=== PATIENT | male | born 1955 | race Caucasian/White ===

== ENCOUNTER → 2018-12-11 | Outpatient (CLI) | payer MEDICARE, OTHER ==
[~2018-12-11] MED LIST: CITA10TA GT; DOXY100C42 PO; EZET1TAB43 PO; HUMALOG; HYDR1TAB66 PO; IOHEXOL 350 MG/ML 100 ML (OMNIPAQUE 350) VIAL IV ONE; LEVE1U SQ; LEVEMIR; LSNP10T PO; LSNP20T PO; METF-380 PO; MTF500T PO; NS 100 ML (IVPB) BAG IV ONE; RECEIVED CONTRAST (Hold Metformin) IV SCH; SULF-222 PO; [UNRECOGNIZED DRUG - OTHER]
[2018-12-11 13:49] LABS: BUN/CREATININE RATIO 13; CREATININE SERUM 0.85 MG/DL (0.60-1.30); GFR ESTIMATED > 60
--- NOTE | 2018-12-11 16:22 | Diagnostic Imaging Report ---
PROCEDURE: CT chest with contrast, CT abdomen and pelvis with and without contrast. TECHNIQUE: Pre and post intravenous contrast axial imaging of the abdomen and pelvis and post contrast axial imaging of the chest were performed. INDICATION: Back pain, hematuria. COMPARISON: There are no prior CT chest, abdomen, and pelvis exams available for comparison. FINDINGS: On the pre intravenous contrast series through the abdomen, there is no evidence for nephrolithiasis or urolithiasis and the kidneys do not seem to be obstructed. Following administration of intravenous contrast, there was excretion by both kidneys. There is no evidence for a solid renal mass or for hydronephrosis. There is a 1.1 cm fairly well-circumscribed area of low density along the anterior aspect of the left kidney (image 43/99). Most likely, this is a cyst. The urinary bladder is not well distended and consequently difficult to assess. The thickened appearance of the bladder wall may be secondary to incomplete distention as oppose to cystitis. Clinical followup is recommended. The prostate gland is calcified but not enlarged. The appendix was visualized and is not abnormally thickened. There is diverticulosis of the sigmoid and descending colon but there is no evidence for acute diverticulitis. There is a fair amount of fecal material throughout the colon. The liver is homogeneous and not enlarged. The spleen, pancreas, adrenals, gallbladder, aorta, and inferior vena cava are unremarkable for an acute abnormality. The stomach is not well distended and consequently difficult to assess. The images through the thorax show that the heart size is within normal limits. There are coronary artery calcifications involving the LAD. The aorta is not abnormally dilated and there is no sign of dissection. The pulmonary arteries were not well opacified and consequently difficult to evaluate for pulmonary embolus. There is no definite defect to suggest a pulmonary embolus. There is no mediastinal or hilar adenopathy. There is a small 4 mm area of low density in the left lobe of the thyroid. This is most likely a benign process. If further imaging is desired, then ultrasound would be recommended. The lungs are clear. There is no sign of failure, pneumonia, or pleural effusion to indicate an acute abnormality. There is an 8 mm calcification in the right lung base. This is of uncertain etiology but may be a sequela of prior trauma and/or infection. Reportedly, the patient has pain in the region of the left scapula. A marker was placed over the area of concern. There is no mass identified in this area nor is there any evidence for a bony injury to the scapula. The bone windows do show severe degenerative disc and bony disease at L5-S1. There may also be trefoil stenosis at L3-L4 and L4-L5. If further study is desired, then MRI would be recommended. IMPRESSION: 1. There is no acute abnormality of the chest, abdomen, or pelvis. 2. There is no evidence for nephrolithiasis or urolithiasis and the kidneys do not appear to be obstructed. 3. There is no abnormality of the left scapula to account for the patient's pain. 4. The thickened appearance of the bladder wall may be secondary to incomplete distention as oppose to cystitis. Clinical followup is recommended. 5. The heart is not enlarged but there are coronary artery calcifications involving the LAD. 6. The small area of low density within the left lobe of the thyroid is most likely a benign process. If further evaluation is desired, then ultrasound would be recommended. Dictated by: Dictated on workstation # [id number]
== END ==
LOC: RAD 13:20
PROVIDERS: ATTEND Urology
DX: I25.10 Atherosclerotic heart disease of native coronary artery without angina pectoris (principal); E07.89 Other specified disorders of thyroid; R31.9 Hematuria, unspecified
CPT/HCPCS: 36415; 71260; 74178; 82565; 84520

== ENCOUNTER → 2019-01-13 | Outpatient (CLI) | payer MEDICARE ==
[~2019-01-13] MED LIST changes: -IOHEXOL 350 MG/ML 100 ML (OMNIPAQUE 350) VIAL IV ONE; -NS 100 ML (IVPB) BAG IV ONE; -RECEIVED CONTRAST (Hold Metformin) IV SCH
--- NOTE | 2019-01-13 18:45 | Diagnostic Imaging Report ---
INDICATION: Thyroid nodule. TECHNIQUE: Grayscale sonographic images of the thyroid gland. CORRELATION STUDY: None FINDINGS: RIGHT LOBE: 4.2 x 2.4 x 2.0 cm. There are several hypoechoic nodules within the right lobe. Largest at 8 x 7 x 3 mm. Additional one at 5 x 4 x 3 mm. LEFT LOBE: 2.9 x 1.7 x 1.5 cm. Hypoechoic nodule in the left lobe measures 6 x 5 x 5 mm. Isthmus appears unremarkable. IMPRESSION: Small hypoechoic nodules within both lobes. Given the multiplicity, findings overall favor likely benign process. Definitive concerning dominant mass is not suggested at this time. (Normal gland size: 4-5 x 2 x 2 cm) Dictated by: Dictated on workstation # [id number]
== END ==
LOC: RAD 11:39
PROVIDERS: ATTEND Nurse Practitioner Family
DX: E04.2 Nontoxic multinodular goiter (principal)
CPT/HCPCS: 76536

== ENCOUNTER → 2019-02-04 | Outpatient (CLI) | payer MEDICARE ==
--- NOTE | 2019-02-04 15:25 | Diagnostic Imaging Report ---
PROCEDURE: MR imaging cervical spine without contrast. TECHNIQUE: Multiplanar, multisequence MR imaging of the cervical spine was performed without contrast. INDICATION: Neck pain. FINDINGS: There is mild straightening of the normal cervical lordosis. The vertebral body heights are well-maintained. There are no marrow signal intensity abnormalities. The prevertebral soft tissues are within normal limits. The posterior fossa is unremarkable. The visualized portions of the spinal cord are of normal signal intensity and morphology. 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 C2-C3 is unremarkable. At C3-C4, there is some broad-based annular bulging and bilateral uncovertebral joint hypertrophy, right greater than left. There is moderate spinal stenosis. There is moderate right and mild left neural foraminal encroachment. At C4-C5, there is broad-based annular bulging and right uncovertebral joint hypertrophy. There is moderate spinal stenosis and [id number]-[id number]-[id number] right neural foraminal encroachment. At C5-C6, there is minimal annular bulging and small central disc protrusion. At C6-C7, there is broad-based annular bulging and bilateral uncovertebral joint hypertrophy. There is effacement of ventral thecal sac and [id number]-[id number]-[id number] bilateral neural foraminal encroachment, left greater than right. C7-T1 is unremarkable. IMPRESSION: Moderate cervical spondylosis and degenerative disc disease as detailed above. Dictated by: Dictated on workstation # [id number]
== END ==
LOC: RAD 12:54
PROVIDERS: ATTEND Orthopaedic Surgery
DX: M47.812 Spondylosis without myelopathy or radiculopathy, cervical region (principal); M50.30 Other cervical disc degeneration, unspecified cervical region; M50.21 Other cervical disc displacement, high cervical region; M48.02 Spinal stenosis, cervical region
CPT/HCPCS: 72141

== ENCOUNTER 2019-02-12 16:45 | Emergency (ER) | payer MEDICARE ==
[~2019-02-12] VITALS: Ht 177.8 cm; Wt 99.8 kg
--- OUTSIDE RECORDS SUMMARY | 2019-02-12 16:50 | XMS REPORT | Continuity of Care Document ---
Author Organization Unknown Address Unknown Allergies Active Description Code Type Severity Reaction Onset Reported/Identified Relationship to Patient Clinical Status Yes CODEINE SULFATE UNKNOWN UNKNOWN Yes NAPROSYN UNKNOWN UNKNOWN Yes codeine [id number] Drug Allergy Mild N/A 10/15/2014 Yes naproxen sodium [id number] Drug Allergy Unknown N/A 10/15/2014 Medications There is no data. 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 10/15/2014 WIL GRAVES MD Ot 959.01 HEAD INJURY, NOS 10/15/2014 WIL GRAVES MD Ot E000.8 OTHER EXTERNAL CAUSE STATUS 10/15/2014 WIL GRAVES MD Ot E849.0 ACCIDENT IN HOME 10/15/2014 WIL GRAVES MD Ot E885.9 FALL FROM SLIPPING, TRIPPING, OR STUMBLI 10/15/2014 WIL GRAVES MD Ot V06.1 [id number], COMBINED [ 01/10/2015 Ot 715.31 01/10/2015 Ot 723.1 01/10/2015 ANA LUISA CARUSO MANAGER WAREHOUSE Ot 486 01/10/2015 Ot 715.31 01/10/2015 Ot 723.1 01/10/2015 ANA LUISA CARUSO MANAGER WAREHOUSE Ot 486 12/12/2018 GOPI MAJANO MD Ot E07.89 OTHER SPECIFIED DISORDERS OF THYROID 12/12/2018 GOPI MAJANO MD Ot I25.10 ATHSCL HEART DISEASE OF [place] CORONARY 12/12/2018 GOPI MAJANO MD Ot R31.9 HEMATURIA, UNSPECIFIED 01/05/2019 GOPI MAJANO MD Ot E07.89 OTHER SPECIFIED DISORDERS OF THYROID 01/05/2019 GOPI MAJANO MD Ot I25.10 ATHSCL HEART DISEASE OF [place] CORONARY 01/05/2019 GOPI MAJANO MD Ot R31.9 HEMATURIA, UNSPECIFIED 01/13/2019 GOPI MAJANO MD Ot E07.89 OTHER SPECIFIED DISORDERS OF THYROID 01/13/2019 GOPI MAJANO MD Ot I25.10 ATHSCL HEART DISEASE OF [place] CORONARY 01/13/2019 GOPI MAJANO MD Ot R31.9 HEMATURIA, UNSPECIFIED 01/13/2019 GOPI MAJANO MD Ot E07.89 OTHER SPECIFIED DISORDERS OF THYROID 01/13/2019 GOPI MAJANO MD Ot I25.10 ATHSCL HEART DISEASE OF [place] CORONARY 01/13/2019 GOPI MAJANO MD Ot R31.9 HEMATURIA, UNSPECIFIED 01/14/2019 EVERETT BUTT BOILER REPAIRMAN Ot E04.2 NONTOXIC MULTINODULAR GOITER 01/18/2019 GOPI MAJANO MD Ot E07.89 OTHER SPECIFIED DISORDERS OF THYROID 01/18/2019 GOPI MAJANO MD Ot I25.10 ATHSCL HEART DISEASE OF [place] CORONARY 01/18/2019 GOPI MAJANO MD Ot R31.9 HEMATURIA, UNSPECIFIED 01/18/2019 EVERETT BUTT BOILER REPAIRMAN Ot E04.2 NONTOXIC MULTINODULAR GOITER 01/19/2019 EVERETT BUTT BOILER REPAIRMAN Ot E04.2 NONTOXIC MULTINODULAR GOITER 02/03/2019 GOPI MAJANO MD Ot E07.89 OTHER SPECIFIED DISORDERS OF THYROID 02/03/2019 GOPI MAJANO MD Ot I25.10 ATHSCL HEART DISEASE OF [place] CORONARY 02/03/2019 GOPI MAJANO MD Ot R31.9 HEMATURIA, UNSPECIFIED 02/03/2019 EVERETT BUTT APRN Ot E04.2 NONTOXIC MULTINODULAR GOITER Procedures There is no data. Results Test Result Range Mycoplasma - 09/13/16 13:50 Mycoplasma Negative Negative Comprehensive Metabolic Panel - 06/11/17 15:05 Albumin 4.1 g/dL 3.6-5.1 ALP 86 U/L 35-130 ALT 19 U/L 6-45 Anion Gap 13 6-14 AST 14 U/L 2-40 BUN 14 mg/dL 5-25 Calcium 9.8 mg/dL 8.3-10.4 Chloride 100 mmol/L 95-114 CO2 25 mEq/L 22-33 Creat 0.76 mg/dL 0.50-1.50 eGFR 104 mL/min/1.73m2 >59 Globulin 2.4 g/dL 2.3-3.5 Glucose 265 mg/dL 70-110 Osmo 284 280-295 Potassium 4.9 mmol/L 3.5-5.3 Sodium 133 mmol/L 134-148 TBil 0.5 mg/dL 0.2-1.2 TP 6.5 g/dL 6.0-8.3 Lipid Panel - 06/11/17 15:05 C/HDL 3.1 3.7-6.7 Cholesterol 147 mg/dL 100-240 HDL 47 mg/dL 30-85 LDL-Calculated 82 mg/dL 0-100 Trig 88 mg/dL 35-160 VLDL 18 mg/dL 0-42 [id number] - 12/11/18 13:30 Serum or plasma urea nitrogen measurement (mass/volume) 11 mg/dL 7-18 Serum or plasma creatinine measurement (mass/volume) 0.85 mg/dL 0.60-1.30 Serum or plasma urea nitrogen/creatinine mass ratio 13 NRG Serum or plasma creatinine measurement with calculation of estimated glomerular filtration rate > NRG Encounters ACCT No. Visit Date/Time Discharge Status Pt. Type Provider Facility Loc./Unit Complaint [id number] 02/04/2019 12:54:00 02/04/2019 23:59:59 CLS Outpatient CHRISTA ESPINO DO [facility] RAD NECK PAIN [id number] 01/13/2019 11:39:00 01/13/2019 23:59:59 CLS Outpatient EVERETT BUTT APRN Via [facility] RAD NONTOXIC SINGLE THYROID NODULE [id number] 12/11/2018 13:20:00 12/11/2018 23:59:59 CLS Outpatient OGPI MAJANO MD [facility] RAD BACK PAIN, HEMATURIA [id number] 10/15/2014 05:35:00 10/15/2014 08:53:00 DIS Emergency WIL GRAVES MD Via [facility] ER FALL-HEAD INJURY [id number] 04/15/2013 15:55:00 04/15/2013 23:59:59 CLS Outpatient ANA LUISA CARUSO [facility] RAD [id number] 03/24/2013 22:11:00 03/28/2013 14:40:00 DIS Inpatient ELLEN KEE, MARLA R Via [facility] 4TH [id number] 11/21/2012 15:53:00 Document Registration [id number] 10/15/2014 05:35:58 ACT Document Registration [id number] 06/12/2017 10:20:00 06/12/2017 23:59:00 DIS Outpatient Jayne Caruso [id number] 01/30/2017 07:43:00 01/30/2017 23:59:00 DIS Outpatient Tigre Mckenna [id number] 09/13/2016 14:38:00 09/13/2016 23:59:00 DIS Outpatient Tigre Mckenna
[2019-02-12] MEDS ORDERED: morphine INJ 10 MG/ML 1ML (SYR OR VIAL) IM STA (17:32)
--- NOTE | 2019-02-12 17:54 | ED Back Pain ---
General Chief Complaint: Back Problems Stated Complaint: BACK PAIN Nursing Triage Note: Pt reports back pain x1 month, worse today. Pt has back surgery scheduled on 03/[address] Campbell. Nursing Sepsis Screen: No Definite Risk Source of Information: Patient Exam Limitations: No Limitations History of Present Illness Date Seen by Provider: February 12, 2019 Time Seen by Provider: 17:32 Allergies and Home Medications Allergies Coded Allergies: codeine (Verified Allergy, Mild, 10/15/14) naproxen sodium (Verified Allergy, Unknown, 10/15/14) Home Medications Citalopram Hydrobromide 10 Mg Tablet, 10 MG GT DAILY, (Reported) Hydrocodone Bit/Acetaminophen 1 Each Tablet, 5-500 MG PO BID PRN, (Reported) PRN MODERATE PAIN Insulin Determir 100 U/Ml Insuln.pen, 50 UNITS SQ HS, (Reported) Lisinopril 20 Mg Tab, 20 MG PO DAILY, (Reported) Metformin Hcl 1,000 Mg Tablet, 1 EACH PO BID WITH MEALS, (Reported) Trimethoprim/Sulfamethoxazole 1 Ea Tablet, 1 TAB PO BID, (Reported) Past Sizohva-Qhuqnr-Tuyces Hx Patient Social History Alcohol Use: Denies Use Recreational Drug Use: No Smoking Status: Never a Smoker Recent Foreign Travel: No Contact w/Someone Who Travel: No Recent Infectious Disease Expo: No Recent Hopitalizations: No Immunizations Up To Date Tetanus Booster (TDap): Unknown Date of Pneumonia Vaccine: Jul 14, 2011 Seasonal Allergies Seasonal Allergies: No Past Medical History Surgeries: Yes Tonsillectomy Respiratory: No Cardiac: Yes Hypertension Neurological: No Reproductive Disorders: No Genitourinary: No Gastrointestinal: No Musculoskeletal: Yes Degenerate Disk Disease, Arthritis, Chronic Back Pain Endocrine: Yes Diabetes, Insulin dep Cancer: No Psychosocial: No Integumentary: No Physical Exam Vital Signs Vital Signs - First Documented 02/12/19 17:23 Temp 98.8 Pulse 93 Resp 18 B/P (MAP) 197/88 (124) Pulse Ox 98 O2 Delivery Room Air Capillary Refill : Less Than 3 Seconds Height, Weight, BMI Height: 5'10.00" Weight: 220lbs. oz. 99.516018we; BMI Method:Stated Progress/Results/Core Measures Results/Orders My Orders Orders - CHERIE BUSH Morphine Injection (Morphine Injection (02/12/19 17:32) Vital Signs/I&O 02/12/19 17:23 Temp 98.8 Pulse 93 Resp 18 B/P (MAP) 197/88 (124) Pulse Ox 98 O2 Delivery Room Air Blood Pressure Mean: 124 Progress Progress Note : Time: 18:07 Progress Note Patient has had improvement of pain. He agrees with plan of care, plans for discharge, return precautions were given. Departure Impression Primary Impression: Chronic back pain Disposition: 01 HOME, SELF-CARE Condition: Stable/Unchanged Departure-Patient Inst. Decision time for Depature: 18:06 Referrals: MARILIN ACPELLAN MD (PCP/Family) Primary Care Physician Patient Instructions: Chronic Pain Add. Discharge Instructions: Resume your home medications as previously prescribed. Follow-up with her primary care provider within 1 week for recheck. Return back to the emergency room for worsening symptoms or concerns as needed. All discharge instructions reviewed with patient and/or family. Voiced understanding. CHERIE BUSH February 12, 2019 17:54
[2019-02-12 18:33] VITALS: BP 197/88
== END 2019-02-12 18:38 | disposition home or self-care (01) ==
LOC: EDUNIT# 16:45 → ER 16:46
DX: M54.9 Dorsalgia, unspecified (principal); G89.29 Other chronic pain; I10 Essential (primary) hypertension; E11.9 Type 2 diabetes mellitus without complications; Z88.5 Allergy status to narcotic agent; Z88.8 Allergy status to other drugs, medicaments and biological substances; Z79.4 Long term (current) use of insulin; Z90.89 Acquired absence of other organs
CPT/HCPCS: 99284

== ENCOUNTER 2019-02-17 22:37 | Emergency (ER) | payer MEDICARE ==
[~2019-02-17] VITALS: Ht 177.8 cm; Wt 99.8 kg
--- OUTSIDE RECORDS SUMMARY | 2019-02-17 22:42 | XMS REPORT | Continuity of Care Document ---
Author Organization Unknown Address Unknown Allergies Active Description Code Type Severity Reaction Onset Reported/Identified Relationship to Patient Clinical Status Yes CODEINE SULFATE UNKNOWN UNKNOWN Yes NAPROSYN UNKNOWN UNKNOWN Yes codeine [id number] Drug Allergy Mild N/A 10/15/2014 Yes naproxen sodium [id number] Drug Allergy Unknown N/A 10/15/2014 Medications There [...] 10/15/2014 Ot 723.1 10/15/2014 ANA LUISA CARUSO PUBLIC WORKS LABORER Ot 486 10/15/2014 Ot 715.31 10/15/2014 Ot 723.1 10/15/2014 ANA LUISA CARUSO PUBLIC WORKS LABORER Ot 486 10/15/2014 WIL GRAVES MD Ot [...] STUMBLI 10/15/2014 WIL GRAVES MD Ot V06.1 [id number], COMBINED [ 01/10/2015 Ot 715.31 01/10/2015 Ot 723.1 01/10/2015 ANA LUISA CARUSO PUBLIC WORKS LABORER Ot 486 01/10/2015 Ot 715.31 01/10/2015 Ot 723.1 01/10/2015 ANA LUISA CARUSO PUBLIC WORKS LABORER Ot 486 12/12/2018 GOPI MAJANO MD Ot E07.89 OTHER SPECIFIED DISORDERS OF THYROID 12/12/2018 GOPI MAJANO MD Ot I25.10 ATHSCL HEART DISEASE OF [place] CORONARY 12/12/2018 GOPI MAJANO MD Ot R31.9 HEMATURIA, UNSPECIFIED 01/05/2019 GOPI MAJANO MD Ot E07.89 OTHER SPECIFIED DISORDERS OF THYROID 01/05/2019 GOPI MAJANO MD Ot I25.10 ATHSCL HEART DISEASE OF [place] CORONARY 01/05/2019 GOPI MAJANO MD Ot R31.9 HEMATURIA, UNSPECIFIED 01/13/2019 GOPI MAJANO MD Ot E07.89 OTHER SPECIFIED DISORDERS OF THYROID 01/13/2019 GOPI MAJANO MD Ot I25.10 ATHSCL HEART DISEASE OF [place] CORONARY 01/13/2019 GOPI MAJANO MD Ot R31.9 HEMATURIA, UNSPECIFIED 01/13/2019 GOPI MAJANO MD Ot E07.89 OTHER SPECIFIED DISORDERS OF THYROID 01/13/2019 GOPI MAJANO MD Ot I25.10 ATHSCL HEART DISEASE OF [place] CORONARY 01/13/2019 GOPI MAJANO MD Ot R31.9 HEMATURIA, UNSPECIFIED 01/14/2019 EVERETT BUTT CHIEF WARDEN Ot E04.2 NONTOXIC MULTINODULAR GOITER 01/18/2019 GOPI MAJANO MD Ot E07.89 OTHER SPECIFIED DISORDERS OF THYROID 01/18/2019 GOPI MAJANO MD Ot I25.10 ATHSCL HEART DISEASE OF [place] CORONARY 01/18/2019 GOPI MAJANO MD Ot R31.9 HEMATURIA, UNSPECIFIED 01/18/2019 EVERETT BUTT CHIEF WARDEN Ot E04.2 NONTOXIC MULTINODULAR GOITER 01/19/2019 EVERETT BUTT CHIEF WARDEN Ot E04.2 NONTOXIC MULTINODULAR GOITER 02/03/2019 GOPI MAJANO MD Ot E07.89 OTHER SPECIFIED DISORDERS OF THYROID 02/03/2019 GOPI MAJANO MD Ot I25.10 ATHSCL HEART DISEASE OF [place] CORONARY 02/03/2019 GOPI MAJANO MD Ot R31.9 [...] 88 mg/dL 35-160 VLDL 18 mg/dL 0-42 [id number] - 12/11/18 13:30 Serum or plasma urea nitrogen measurement (mass/volume) 11 mg/dL 7-18 Serum or plasma creatinine measurement (mass/volume) 0.85 mg/dL 0.60-1.30 Serum or plasma urea nitrogen/creatinine mass ratio 13 NRG Serum or plasma creatinine measurement with calculation of estimated glomerular filtration rate > NRG Encounters ACCT No. Visit Date/Time Discharge Status Pt. Type Provider Facility Loc./Unit Complaint [id number] 02/04/2019 12:54:00 02/04/2019 23:59:59 CLS Outpatient CHRISTA ESPINO DO [facility] RAD NECK PAIN [id number] 01/13/2019 11:39:00 01/13/2019 23:59:59 CLS Outpatient EVERETT BUTT APRN [facility] RAD NONTOXIC SINGLE THYROID NODULE [id number] 12/11/2018 13:20:00 12/11/2018 23:59:59 CLS Outpatient GOPI MAJANO MD [facility] RAD BACK PAIN, HEMATURIA [id number] 10/15/2014 05:35:00 10/15/2014 08:53:00 DIS Emergency WIL GRAVES MD [facility] ER FALL-HEAD INJURY [id number] 04/15/2013 15:55:00 04/15/2013 23:59:59 CLS Outpatient ANA LUISA CARUSO [facility] RAD [id number] 03/24/2013 22:11:00 03/28/2013 14:40:00 DIS Inpatient ELLEN KEE, MARLA R [facility] 4TH [id number] 11/21/2012 15:53:00 Document Registration [id number] 10/15/2014 05:35:58 ACT Document Registration [id number] 06/12/2017 10:20:00 06/12/2017 23:59:00 DIS Outpatient Jayne Caruso [id number] 01/30/2017 07:43:00 01/30/2017 23:59:00 DIS Outpatient Tigre Mckenna [id number] 09/13/2016 14:38:00 09/13/2016 23:59:00 DIS Outpatient Tigre Mkcenna
[2019-02-17] MEDS ORDERED: fentaNYL INJECTION 100 MCG/2 ML AMP IM STA (22:58)
[2019-02-17] MEDS ORDERED: DIAZEPAM 5 MG (VALIUM) TABLET PO ONE (23:00)
--- NOTE | 2019-02-17 23:23 | ED Back Pain ---
General Chief Complaint: Back Problems Stated Complaint: BACK PAIN Nursing Triage Note: TO ED VIA [facility]. PT HAS CHRONIC BACK PAIN, SCHEDULED TO HAVE BACK SX February. STATES HE HAS TO SLEEP, EAT, ETC SITTING UP IN CHAIR. STATES [place] HE WAS COUGHING AND TRIED TO SIT UP AND HEARD A "POP" BETWEEN SHOULDER BLADES AND FELT C/O "SEVERE PAIN THAT IS DIFFERENT THAN NORMAL". TOOK XANAFLEX AT 2150 WITH MILD RELIEF. STATES HE ALSO TAKES MOTRIN FOR PAIN AND HYDROCODONE BUT "IT DOESN'T HELP". LAST HYDRO WAS THIS AM. DENIES BOWEL OR BLADDER CHANGES. DENIES DEPRESSION. Nursing Sepsis Screen: No Definite Risk History of Present Illness Date Seen by Provider: February 17, 2019 Time Seen by Provider: 22:40 Initial Comments 63-year-old male brought via EMS for chronic mid back pain. He was seen here on 02/12/19 for similar complaints. He is scheduled for surgery with Dr. Espino on 03/02/19. He states that he choked this afternoon and then began coughing and felt and heard a pop in his mid back. Since then he's been unable to control his pain. The patient denies taking hydrocodone today and only took Zanaflex approximately 30 minutes prior to arrival here. However his reports that he is taking hydrocodone, however she does not know how frequently. They have requested to move his surgery to an earlier date, but unable to reschedule. They have not followed up with Dr. Espino or Dr. Alejandro for management of his increased pain. Patient reports for the last 5 days, he has been unable to lie flat. He is wearing a back brace for his thoracic spine. He denies new injuries or falls. He feels minimal relief with ice on his back. He had temporary relief after the Morphine injection at the previous visit. He denies radicular or paraesthesia symptoms. He has chronic cervical and lumbar pain, as well, and will have cervical surgery after this thoracic is recovered. Son called prior to patient arriving, concerned that patient is becoming depressed from chronic pain and that patient said "he can't live with the pain. " Talked to patient, he admits to being stressed by the constant pain, but he is not suicidal or homicidal. Location: Paraspinous Muscles, T-Spine Timing/Duration: Getting Worse Severity: Severe Associated Symptoms: muscle spasms, weakness, tingling in legs/feet, lower back pain; No loss of bladder control, No loss of bowel control Allergies and Home Medications Allergies Coded Allergies: codeine (Verified Allergy, Mild, 10/15/14) naproxen sodium (Verified Allergy, Unknown, 10/15/14) Home Medications Citalopram Hydrobromide 10 Mg Tablet, 10 MG GT DAILY, (Reported) Diazepam 10 Mg Tablet, 10 MG PO Q6H PRN for SPASMS Prescribed by: SALENA RAJAN on 02/17/19 9994 Hydrocodone Bit/Acetaminophen 1 Each Tablet, 5-500 MG PO BID PRN, (Reported) PRN MODERATE PAIN Insulin Determir 100 U/Ml Insuln.pen, 50 UNITS SQ HS, (Reported) Lisinopril 20 Mg Tab, 20 MG PO DAILY, (Reported) Metformin Hcl 1,000 Mg Tablet, 1 EACH PO BID WITH MEALS, (Reported) Trimethoprim/Sulfamethoxazole 1 Ea Tablet, 1 TAB PO BID, (Reported) Patient Home Medication List Home Medication List Reviewed: Yes Review of Systems Constitutional: no symptoms reported, see HPI Musculoskeletal: see HPI, back pain (thoracic spine), muscle pain, muscle stiffness, muscle cramps, muscle weakness All Other Systems Reviewed Negative Unless Noted: Yes Past Pcozvve-Pknyqe-Dhkuxt Hx Past Med/Social Hx: Reviewed Nursing Past Med/Soc Hx Patient Social History Alcohol Use: Denies Use Recreational Drug Use: No Smoking Status: Former Smoker Recent Foreign Travel: No Contact w/Someone Who Travel: No Recent Infectious Disease Expo: No Recent Hopitalizations: No Immunizations Up To Date Tetanus Booster (TDap): Unknown Date of Pneumonia Vaccine: Jul 14, 2011 Seasonal Allergies Seasonal Allergies: No Past Medical History Surgeries: Yes Tonsillectomy Respiratory: No Cardiac: Yes Hypertension Neurological: No Reproductive Disorders: No Genitourinary: No Gastrointestinal: No Musculoskeletal: Yes Degenerate Disk Disease, Arthritis, Chronic Back Pain Endocrine: Yes Diabetes, Non-Insulin dep Cancer: No Psychosocial: No Integumentary: No Physical Exam Vital Signs Vital Signs - First Documented 02/17/19 02/17/19 22:39 23:54 Temp 97.8 Pulse 91 Resp 20 B/P (MAP) 197/97 (130) Pulse Ox 98 Capillary Refill : Less Than 3 Seconds Height, Weight, BMI Height: 5'10.00" Weight: 220lbs. 0.0oz. 99.463830df; 30.68 BMI Method:Stated General Appearance: No Apparent Distress, Mild Distress (secondary to pain) HEENT: Normal ENT Inspection, Pharynx Normal Neck: Normal Inspection, Non Tender, Supple Cardiovascular: Regular Rate, Rhythm, No Edema, Normal Peripheral Pulses Respiratory: Chest Non Tender, Lungs Clear, Normal Breath Sounds Gastrointestinal: Normal Bowel Sounds, Non Tender, Soft Back: Normal Inspection, Decreased Range of Motion (secondary to pain), Muscle Spasm, Vertebral Tenderness (thoracic and lumbar spine), Other (Power V/V L4-S1 and C5-T1. ) Extremity: Normal Capillary Refill, Normal Inspection, Normal Range of Motion, Non Tender, No Pedal Edema Neurologic/Psychiatric: Alert, Oriented x3, No Motor/Sensory Deficits, Normal Mood/Affect Skin: Normal Color, Warm/Dry Progress/Results/Core Measures Results/Orders Lab Results Laboratory Tests Test 02/17/19 22:51 Range/Units Glucometer 267 H 70-110 MG/DL My Orders Orders - SALENA RAJAN Thoracic Spine, 2 Views Only (02/17/19 22:57) Fentanyl Injection (Sublimaze Injection (02/17/19 22:58) Diazepam Tablet (Valium Tablet) (02/17/19 23:00) Rx-Diazepam Tablet (Rx-Valium Tablet) (02/17/19 23:48) Medications Given in ED Current Medications Medications Dose Ordered Sig/Ladarius Route Start Time Stop Time Status Last Admin Dose Admin Diazepam 5 mg ONCE ONCE PO 02/17/19 23:00 02/17/19 23:01 DC 02/17/19 23:06 5 MG Vital Signs/I&O 02/17/19 02/17/19 22:39 23:54 Temp 97.8 97.8 Pulse 91 89 Resp 20 18 B/P (MAP) 197/97 (130) 165/85 (111) Pulse Ox 98 Blood Pressure Mean: 130 Progress Progress Note : Time: 22:40 Progress Note Patient seen and evaluated. Will get x-ray of T-spine and try Fentanyl 100 mg IM for pain and Valium 5 mg po for pain and spasms. Stressed the importance that they call and follow up with Dr. Espino, even if surgery can't be sooner, the pain management and medications need to be under his direction this close to surgery. Ice pack applied to back. 2310 Patient reports pain has improved to 5/10. Able to transfer from bed to standing for x-ray, minimal discomfort. X-ray findings reviewed with patient and . Patient able to put his shoes on, transfer to standing, steady gait to walk to bathroom and out to car for d/c. Discharge instructions and return precautions reviewed. Patient and very thankful and appreciative of treatment and his improvement. He has Ambien at home for sleep, instructed he can take one when he gets home, but if he takes Ambien, do NOT take Benadryl. May repeat Valium 1-2 in 6 hours. Diagnostic Imaging Diagonstic Imaging: Xray Plain Films/CT/US/NM/MRI: other (T spine) Comments Deg disc disease with narrowing at T 3-4, 5-6 and 7-8, spurs noted at endplates. No acute findings or fractures. Will be over-read by radiology. Reviewed: Reviewed by Me Departure Impression Primary Impression: Chronic thoracic spine pain Additional Impressions: Degenerative disc disease, thoracic Degenerative disc disease, cervical Degenerative disc disease, lumbar Disposition: HOME, SELF-CARE Condition: Improved Departure-Patient Inst. Referrals: MARILIN ALEJANDRO MD (PCP/Family) Primary Care Physician Patient Instructions: Low Back Pain (DC), Upper Back Pain (DC) Add. Discharge Instructions: Obtain walker to use at all times. Take Valium one tablet every 6-8 hours as needed for muscle spasms. Usual hydrocodone as prescribed by surgeon. You may take Benadryl 25-50 mg at bedtime or Ambien, but do not take both. Call your surgeon or primary care provider to manage pain until surgery. Ice to low back for 20 min every two hours. Return to emergency department for new, urgent health care needs. All discharge instructions reviewed with patient and/or family. Voiced understanding. Scripts Diazepam (Valium) 10 Mg Tablet 10 MG PO Q6H PRN for SPASMS, #21 TAB 0 Refills Prov: SALENA RAJAN 02/17/19 Copy Copies To 1: CHRISTA ESPINO AMY ARNP February 17, 2019 23:23
[2019-02-17] MEDS ORDERED: DIAZ10TA PO (23:47)
[2019-02-17] MEDS ORDERED: RX-DIAZEPAM 5 MG (VALIUM) TAB PPK#4 PO STA (23:48)
[2019-02-17 23:54] VITALS: BP 165/85
--- NOTE | 2019-02-18 07:57 | Diagnostic Imaging Report ---
Indication: Back pain. Findings: AP and lateral views of the thoracic spine. Good alignment of vertebral bodies. There has been loss of disc space in the midthoracic region estimated to be the T5-T6 level. There is degenerative disc disease throughout the remaining levels. The pedicles are intact. Impression: Loss of disc space has occurred since previous CT scan estimated to be the T5-T6 level. With patient's history of pain, acute discitis would be of concern. Would recommend MRI with and without IV gadolinium. Critical finding Called to Dr. Padgett at 7:55 a.m. By cvb. Dictated by: Dictated on workstation # [id number]
== END 2019-02-17 23:56 | disposition home or self-care (01) ==
LOC: EDUNIT# 22:37 → ER 22:38
DX: M51.34 Other intervertebral disc degeneration, thoracic region (principal); M51.36 Other intervertebral disc degeneration, lumbar region; M50.30 Other cervical disc degeneration, unspecified cervical region; G89.29 Other chronic pain; I10 Essential (primary) hypertension; E11.9 Type 2 diabetes mellitus without complications; Z88.5 Allergy status to narcotic agent; Z88.8 Allergy status to other drugs, medicaments and biological substances; Z79.4 Long term (current) use of insulin; Z87.891 Personal history of nicotine dependence; Z90.89 Acquired absence of other organs
CPT/HCPCS: 72070; 82962; 96372

== ENCOUNTER 2019-02-25 13:02 | Outpatient (CLI) | payer MEDICARE ==
[~2019-02-25] VITALS: Ht 177.8 cm; Wt 98.6 kg
[~2019-02-25 13:02] MED LIST changes: +DIAZ10TA PO
[2019-02-25] MEDS ORDERED: NF-ESOM40C PO (13:23)
[2019-02-25] MEDS ORDERED: INSU100V5 SQ (13:23)
[2019-02-25] MEDS ORDERED: ZOLP10TA5 PO (13:23)
[2019-02-25] MEDS ORDERED: CYCL10TA9 PO (13:23)
[2019-02-25] MEDS ORDERED: LISI10TA2 PO (13:23)
[2019-02-25] MEDS ORDERED: METF-397 PO (13:23)
[2019-02-25] MEDS ORDERED: INSU100I23 SQ (13:23)
[2019-02-25 14:07] LABS: BASOPHILS % (AUTO) 1 % (0-10); EOSINOPHILS # (AUTO) 0.1 10^3/uL (0.0-0.3); EOSINOPHILS % (AUTO) 2 % (0-10); HEMATOCRIT 42 % (40-54); HEMOGLOBIN 13.9 G/DL (13.3-17.7); LYMPHOCYTES # (AUTO) 1.2 X 10^3 (1.0-4.0); LYMPHOCYTES % (AUTO) 19 % (12-44); MEAN CORPUSCULAR HEMOGLOBIN 29 PG (25-34); MEAN CORPUSCULAR HGB CONC 33 G/DL (32-36); MEAN CORPUSCULAR VOLUME 88 FL (80-99); MEAN PLATELET VOLUME 9.9 FL (7.4-10.4); MONOCYTES # (AUTO) 0.6 X 10^3 (0.0-1.0); MONOCYTES % (AUTO) 9 % (0-12); NEUTROPHILS # (AUTO) 4.4 X 10^3 (1.8-7.8); NEUTROPHILS % (AUTO) 70 % (42-75); PLATELET COUNT 285 10^3/uL (130-400); WHITE BLOOD COUNT 6.3 10^3/uL (4.3-11.0)
[2019-03-03] MEDS ORDERED: OXYC1TAB87 PO (16:17)
== END 2019-02-25 16:00 | disposition home or self-care (01) ==
LOC: PREOP 13:02
PROVIDERS: ATTEND Orthopaedic Surgery
DX: Z01.812 Encounter for preprocedural laboratory examination (principal); Z11.2 Encounter for screening for other bacterial diseases; M48.02 Spinal stenosis, cervical region
CPT/HCPCS: 36415; 85025; 86850; 86900; 86901; 87081

== ENCOUNTER 2019-03-23 14:22 | Emergency (ER) | payer MEDICARE ==
[~2019-03-23] VITALS: Ht 177.8 cm; Wt 99.8 kg
[~2019-03-23 14:22] MED LIST changes: +CYCL10TA9 PO; +INSU100I23 SQ; +INSU100V5 SQ; +LISI10TA2 PO; +METF-397 PO; +NF-ESOM40C PO; +OXYC1TAB87 PO; +ZOLP10TA5 PO
[2019-03-23] MEDS ORDERED: RT-ALBUTEROL/IPRATROPIUM 3 ML (DUONEB) VIAL INH ONE (15:00)
--- NOTE | 2019-03-23 15:23 | ED Respiratory ---
General Chief Complaint: Cough/Cold/Flu Symptoms Stated Complaint: CHEST CONGESTION Nursing Triage Note: PT AMB TO TRIAGE WITH COMPLAINT OF COUGH AND CHEST CONGESTION FOR THREE WEEKS. STATES HE HAD SPINAL SURGERY 3 WEEKS AND STATES HE HAS HAD A COUGH SINCE. STATES HE WAS PUT ON LEVAQUIN LAST WEEK. STATES HE IS CONCERNED HE COULD HAVE PNEUMONIA. Source: patient, family Exam Limitations: no limitations History of Present Illness Date Seen by Provider: Mar 23, 2019 Time Seen by Provider: 14:45 Initial Comments This 63-year-old woman presents to the emergency room with complaints of persistent cough since having cervical spine surgery for stenosis by Dr. Campbell 3 weeks ago. He received a prescription for 5 days of Levaquin which she completed. This did not seem to improve his cough. It is disturbing him at night and preventing him from sleeping. He has some postnasal drip as well. He denies any fever. He has tried an albuterol inhaler at home which has not seemed to help him much. Cough seems loosen somewhat productive. Patient does not smoke. He denies any significant lung problems or heart disease. Allergies and Home Medications Allergies Coded Allergies: naproxen sodium (Verified Allergy, Severe, ANAPHYLAXIS, 02/25/19) codeine (Verified Allergy, Mild, 02/25/19) TOOK FOR EXTENDED PERIOD AND QUIT WORKING Home Medications Albuterol Sulfate 2.5 Mg/3 Ml Vial.neb, 2.5 MG INH Q4H PRN for SHORTNESS OF BREATH Prescribed by: HANSA HUSTON on 03/23/191599 Amlodipine Besylate 5 Mg Tablet, 5 MG PO DAILY Prescribed by: HANSA HUSTON on 03/23/191599 Cyclobenzaprine HCl 10 Mg Tablet, 10 MG PO DAILY, (Reported) Esomeprazole Magnesium 40 Mg Cap, 40 MG PO DAILY, (Reported) Fluticasone Propionate 9.9 Ml [place].susp, 2 SPRAY NSEACH BID 2 SPRAYS PER NOSTRIL DAILY X 2 DAYS THEN 1 SPRAY DAILY Prescribed by: HANSA HUSTON on 03/23/19 1600 Insulin Determir 1,000 Units/10 Ml Soln, 40 UNITS SQ HS, (Reported) Insulin Lispro 100 Unit/1 Ml Insuln.pen, 15 UNIT SQ AC, (Reported) Lisinopril 10 Mg Tablet, 10 MG PO DAILY, (Reported) Metformin HCl 500 Mg Tablet, 500 MG PO BID, (Reported) Oxycodone HCl/Acetaminophen 1 Each Tablet, 1-2 TAB PO Q4H PRN for PAIN-MODERATE TO SEVERE Prescribed by: HOMER CAMPBELL on 03/03/19 1617 Zolpidem Tartrate 10 Mg Tablet, 10 MG PO HS, (Reported) Patient Home Medication List Home Medication List Reviewed: Yes Review of Systems Review of Systems Constitutional: no symptoms reported EENTM: see HPI Respiratory: see HPI Cardiovascular: no symptoms reported Gastrointestinal: no symptoms reported Genitourinary: no symptoms reported Musculoskeletal: no symptoms reported Skin: no symptoms reported Psychiatric/Neurological: No Symptoms Reported Hematologic/Lymphatic: No Symptoms Reported Past Mqryqde-Dvdwgs-Rqdmky Hx Past Med/Social Hx: Reviewed and Corrections made Patient Social History Alcohol Use: Denies Use Recreational Drug Use: No Smoking Status: Former Smoker Former Smoker, Quit: February 25, 1999 2nd Hand Smoke Exposure: Yes Recent Foreign Travel: No Contact w/Someone Who Travel: No Recent Infectious Disease Expo: No Recent Hopitalizations: No Immunizations Up To Date Tetanus Booster (TDap): Unknown Date of Pneumonia Vaccine: Jul 21, 2018 Date of Influenza Vaccine: Jul 21, 2018 Seasonal Allergies Seasonal Allergies: No Past Medical History Surgeries: Yes Orthopedic (cervical spine), Tonsillectomy Respiratory: No Cardiac: Yes Hypertension Neurological: No Reproductive Disorders: No Sexually Transmitted Disease: No HIV/AIDS: No Genitourinary: No Gastrointestinal: Yes Gastroesophageal Reflux Musculoskeletal: Yes (STENOSIS) Chronic Back Pain Endocrine: Yes Diabetes, Insulin dep HEENT: Yes (GLASSES) Hearing Impairment: Hard of Hearing, Bilateral Hearing Aide Cancer: No Psychosocial: No Integumentary: No Blood Disorders: No Adverse Reaction/Blood Tranf: No Physical Exam Vital Signs - First Documented 03/23/19 14:29 Temp 98.0 Pulse 80 Resp 17 B/P (MAP) 159/88 (111) Pulse Ox 96 O2 Delivery Room Air Capillary Refill : Less Than 3 Seconds Height: 5'10.00" Weight: 220lbs. 7.0oz. 99.820670cw; 31.2 BMI Method:Stated General Appearance: WD/WN, no apparent distress HEENT: PERRL/EOMI, normal ENT inspection, pharynx normal Neck: normal inspection, other (well healed anterior incision) Respiratory: lungs clear, no respiratory distress, no accessory muscle use, decreased breath sounds, other (slightly prolonged expiratory phase) Cardiovascular: regular rate, rhythm, no edema, no murmur Gastrointestinal: non tender, soft Extremities: normal inspection, no pedal edema Neurologic/Psychiatric: denitrator II-XII nml as tested, no motor/sensory deficits, alert, normal mood/affect, oriented x 3 Skin: normal color, warm/dry Progress/Results/Core Measures Suspected Sepsis Recent Fever Within 48 Hours: No Infection Criteria Present: None New/Unexplained Altered Menta: No Sepsis Screen: No Definite Risk SIRS Temperature:98.0 Pulse: 80 Respiratory Rate: 17 Blood Pressure 159 /88 Mean: 111 Results/Orders My Orders Orders - HANSA ARANDA MD Albuterol/Ipra Inhalation Soln (Duoneb I (03/23/19 15:00) Svn Small Volume Nebulizer (03/23/19 14:52) Chest Pa/Lat (2 View) (03/23/19 14:52) Medications Given in ED Current Medications Medications Dose Ordered Sig/Ladarius Route Start Time Stop Time Status Last Admin Dose Admin Albuterol/ Ipratropium 3 ml ONCE ONCE INH 03/23/19 15:00 03/23/19 15:01 DC 03/23/19 15:11 3 ML Vital Signs/I&O 03/23/19 03/23/19 03/23/19 14:29 15:12 16:16 Temp 98.0 98.0 Pulse 80 80 Resp 17 17 B/P (MAP) 159/88 (111) 159/88 (111) Pulse Ox 96 91 91 O2 Delivery Room Air Room Air Room Air Capillary Refill : Less Than 3 Seconds Blood Pressure Mean: 111 Progress Note : Progress Note Patient received a DuoNeb treatment before x-ray. He did feel somewhat improved after the DuoNeb treatment. The x-ray revealed no acute abnormalities. I discussed possible causes for his cough. Lisinopril certainly could be a trigger. He could also be having an exacerbation of chronic bronchitis. After discussion, he plans to trial a week off of lisinopril. He was provided with a prescription for Norvasc if blood pressure creeps up during that time. If a tri al off lisinopril does not resolve his problem, he will try a combination of nasal steroid spray and nebulizer treatments. Diagnostic Imaging Diagonstic Imaging: Xray Plain Films/CT/US/NM/MRI: chest Comments Chest x-ray viewed by me and report reviewed. See report below: NAME: OMID ROBERSON JR [facility] REC#: [id number] PT STATUS: REG ER : 1955 PHYSICIAN: HANSA ARANDA MD ADMIT DATE: 03/23/19/ER Draft Date of Exam:03/23/19 CHEST PA/LAT (2 VIEW) INDICATION: Shortness of breath and cough. EXAMINATION: PA and lateral chest. FINDINGS: There is some discoid atelectasis at the left lung base. There is a small calcified granuloma in the right lower lung. There are no infiltrates, effusions, or pneumothoraces. IMPRESSION: No acute abnormalities in the chest. Dictated on workstation # [id number] Dict: 03/23/19 1527 Trans: 03/23/19 1540 [id number] Interpreted by: NATALIA STOVER MD Departure Impression Primary Impression: Chronic bronchitis with acute exacerbation Additional Impressions: Postnasal drip Persistent cough for 3 weeks or longer Disposition: 01 HOME, SELF-CARE Condition: Improved Departure-Patient Inst. Decision time for Depature: 15:57 Referrals: MARILIN CAPELLAN MD (PCP/Family) Primary Care Physician Patient Instructions: Chronic Bronchitis Add. Discharge Instructions: You may continue using a nondrowsy antihistamine such as Claritin or Zyrtec or their generic equivalents daily. Lisinopril is well known for causing a nagging chronic cough. You may stop lisinopril for a week. If your cough resolves, lisinopril is likely the cause. If blood pressure creeps up while off lisinopril, you may start Norvasc (amlodipine) as prescribed. If a trial off lisinopril does not stop the cough, then try using a combination of Flonase and nebulizer treatments as directed. Follow-up with your primary care provider within the next couple of weeks. All discharge instructions reviewed with patient and/or family. Voiced understanding. Scripts Albuterol Sulfate (Albuterol Sulfate) 2.5 Mg/3 Ml Vial.neb 2.5 MG INH Q4H PRN for SHORTNESS OF BREATH, #50 EA 1 Refill Prov: HANSA ARANDA MD 03/23/19 Fluticasone Propionate (Flonase Allergy Relief) 9.9 Ml [place].susp 2 SPRAY NSEACH BID, #1 EACH 2 Refills 2 SPRAYS PER NOSTRIL DAILY X 2 DAYS THEN 1 SPRAY DAILY Prov: HANSA ARANDA MD 03/23/19 Amlodipine Besylate (Norvasc) 5 Mg Tablet 5 MG PO DAILY, #30 TAB Prov: HANSA ARANDA MD 03/23/19 Copy Copies To 1: MARILIN CAPELLAN MD, JOSHUA T MD Mar 23, 2019 15:22
--- NOTE | 2019-03-23 15:41 | Diagnostic Imaging Report ---
INDICATION: Shortness of breath and cough. EXAMINATION: PA and lateral chest. FINDINGS: There is some discoid atelectasis at the left lung base. There is a small calcified granuloma in the right lower lung. There are no infiltrates, effusions, or pneumothoraces. IMPRESSION: No acute abnormalities in the chest. Dictated by: Dictated on workstation # [id number]
[2019-03-23] MEDS ORDERED: AMLO5TAB4 PO (16:00)
[2019-03-23] MEDS ORDERED: ALBU2.5V4 INH (16:00)
[2019-03-23] MEDS ORDERED: FLUT9.9S NSEACH (16:00)
[2019-03-23 16:16] VITALS: BP 159/88
== END 2019-03-23 16:16 | disposition home or self-care (01) ==
LOC: EDUNIT# 14:22 → ER 14:23
DX: J20.9 Acute bronchitis, unspecified (principal); J42 Unspecified chronic bronchitis; R09.82 Postnasal drip; I10 Essential (primary) hypertension; K21.9 Gastro-esophageal reflux disease without esophagitis; E11.9 Type 2 diabetes mellitus without complications; Z88.8 Allergy status to other drugs, medicaments and biological substances; Z88.5 Allergy status to narcotic agent; Z98.890 Other specified postprocedural states; Z79.4 Long term (current) use of insulin; Z79.51 Long term (current) use of inhaled steroids; Z87.891 Personal history of nicotine dependence; Z90.89 Acquired absence of other organs
CPT/HCPCS: 71046; 94640

== ENCOUNTER 2019-04-20 14:45 | Emergency (ER) | payer MEDICARE ==
[~2019-04-20] VITALS: Ht 177.8 cm; Wt 97.5 kg
[~2019-04-20 14:45] MED LIST changes: +ALBU2.5V4 INH; +AMLO5TAB4 PO; +FLUT9.9S NSEACH
--- NOTE | 2019-04-20 15:45 | Diagnostic Imaging Report ---
EXAMINATION: Chest, 2 views. HISTORY: Cough. COMPARISON: 03/23/2019. FINDINGS: There is a right lower lobe airspace opacity, concerning for pneumonia. The previously seen left base opacity has resolved. No pneumothorax. No edema. No pleural effusion. The heart size is normal. IMPRESSION: New right lower lobe airspace opacity, concerning for pneumonia. Dictated by: Dictated on workstation # [id number]
--- NOTE | 2019-04-20 15:53 | ED Respiratory ---
General Chief Complaint: Respiratory Problems Stated Complaint: SOA Nursing Triage Note: PATIENT STATES THAT HE HAS HAD SOB AND COUGHING UP WHITE SPUTUM FOR APPROXIMATELY 10 WEEKS. HE HAS SEEN DOCTORS FOR THIS ALREADY. HOWEVER, HE REPORTS THAT HE DID HAVE TO USE HIS RESCUE INHALER AND A NEBULIZER THIS MORNING BECAUSE OF THIS SOB. HIS DOCTOR RECOMMENDED THAT HE COME TO THE ER. Source: patient History of Present Illness Date Seen by Provider: Apr 20, 2019 Time Seen by Provider: 15:25 Initial Comments PT ARRIVES VIA POV FROM HOME PT STATES THAT HE HAD CERVICAL SPINE SURGERY BY DR. ESPINO ON 03/02/19 PT HAS BEEN RELEASED BY DR. ESPINO AND HAS DONE WELL FROM SURGICAL STANDPOINT HOWEVER, PT STATES THAT SINCE HE WAS DISMISSED FROM THE HOSPITAL ON 03/03/19 HE HAS HAD A PERSISTENT COUGH WITH LOTS OF WHITE MUCOUS. STATES "I KEEP FILLING UP WITH MUCOUS" STATES THIS MORNING WHEN HE GOT UP, HE HAD ALOT OF MUCOUS AND WAS SHORT OF BREATH WITH IT AND "COULDN'T GET TO MY INHALER" STATES HE FEELS BETTER AFTER HE USES NEBULIZER AND / OR INHALER--HAS ALBUTEROL AND HAS BEEN USING BOTH . DOES NOT HAVE A SPACER FOR INHALER. STATES HE HAS NEVER HAD ANY KIND OF LUNG PROBLEMS AND HAS NEVER NEEDED A NEBULIZER OR INHALER UNTIL THIS STARTED. PT IS A FORMER SMOKER--SMOKED 1 PPD, QUIT 15+ YEARS AGO. STATES HE WAS SEEN BY TAILMAN AT [facility] [place] FOR ROUTINE MONTHLY APPOINTMENT FOR REFILLS ON HIS MEDICATIONS, AND WAS PUT ON INHALER AND NEBULIZER. APPARENTLY AT SOME POINT, HE HAD LEVAQUIN FOR 5 DAYS WELL--IS UNCLEAR IF THIS WAS RIGHT AFTER SURGERY OR WITH FOLLOW UP VISIT PT WAS SEEN HERE 03/23/19 FOR THIS PROBLEM AND HAD LAB AND CXR--ALL ESSENTIALLY NORMAL. WAS TOLD TO STOP HIS LISINOPRIL AND WAS GIVEN RX FOR NORVASC, FLONASE AND ALBUTEROL NEBULES NO FEVER NO CHEST PAIN NO SWELLING IN LEGS/FEET OR PAIN IN CALVES NO SHORTNESS OF BREATH EXCEPT FOR THE EPISODE THIS AM--CALLED HIS TAILMAN'S OFFICE TODAY, WHO TOLD HIM TO COME HERE. PCP: [facility] IN [place] Allergies and Home Medications Allergies Coded Allergies: naproxen sodium (Verified Allergy, Severe, ANAPHYLAXIS, 02/25/19) codeine (Verified Allergy, Mild, 02/25/19) TOOK FOR EXTENDED PERIOD AND QUIT WORKING Home Medications Albuterol Sulfate 2.5 Mg/3 Ml Vial.neb, 2.5 MG INH Q4H PRN for SHORTNESS OF BREATH Prescribed by: HANSA HUSTON on 03/23/191599 Amlodipine Besylate 5 Mg Tablet, 5 MG PO DAILY Prescribed by: HANSA HUSTON on 03/23/191599 Azithromycin 500 Mg Tablet, 500 MG PO DAILY FOR INFECTION Prescribed by: CAMACHO BALLESTEROS on 04/20/191735 Budesonide 1 Mg/2 Ml Ampul.neb, 1 MG IH BID Prescribed by: CAMACHO BALLESTEROS on 04/20/191735 Cefdinir 300 Mg Capsule, 300 MG PO BID Prescribed by: CAMACHO BALLESTEROS on 04/20/191735 Cyclobenzaprine HCl 10 Mg Tablet, 10 MG PO DAILY, (Reported) Esomeprazole Magnesium 40 Mg Cap, 40 MG PO DAILY, (Reported) Fluticasone Propionate 9.9 Ml [place].susp, 2 SPRAY NSEACH BID 2 SPRAYS PER NOSTRIL DAILY X 2 DAYS THEN 1 SPRAY DAILY Prescribed by: HANSA HUSTON on 03/23/191599 Guaifenesin/Dextromethorphan 1 Each Tbmp.12hr, 1 EACH PO BID Prescribed by: CAMACHO BALLESTEROS on 04/20/191735 Insulin Determir 1,000 Units/10 Ml Soln, 40 UNITS SQ HS, (Reported) Insulin Lispro 100 Unit/1 Ml Insuln.pen, 15 UNIT SQ AC, (Reported) Lisinopril 10 Mg Tablet, 10 MG PO DAILY, (Reported) Metformin HCl 500 Mg Tablet, 500 MG PO BID, (Reported) Methylprednisolone 4 Mg Tab.ds.pk, 4 MG PO UD Prescribed by: CAMACHO BALLESTEROS on 04/20/191735 Oxycodone HCl/Acetaminophen 1 Each Tablet, 1-2 TAB PO Q4H PRN for PAIN-MODERATE TO SEVERE Prescribed by: HOMER ESPINO on 03/03/19 161 Zolpidem Tartrate 10 Mg Tablet, 10 MG PO HS, (Reported) Patient Home Medication List Home Medication List Reviewed: Yes Review of Systems Review of Systems Constitutional: no symptoms reported; No chills, No diaphoresis EENTM: nose congestion Respiratory: see HPI, cough; No orthopnea; phlegm, short of breath; No wheezing Cardiovascular: no symptoms reported; No chest pain, No edema Gastrointestinal: no symptoms reported Genitourinary: no symptoms reported Musculoskeletal: see HPI Skin: no symptoms reported Psychiatric/Neurological: No Symptoms Reported Hematologic/Lymphatic: No Symptoms Reported Immunological/Allergic: no symptoms reported Past Kzkqiqs-Hndaql-Hdlvgo Hx Patient Social History Alcohol Use: Denies Use Recreational Drug Use: No Smoking Status: Former Smoker (SMOKED 1 PPD, QUIT 15 + YEARS AGO) Type Used: Cigarettes Former Smoker, Quit: February 25, 1999 2nd Hand Smoke Exposure: Yes Recent Foreign Travel: No Contact w/Someone Who Travel: No Recent Infectious Disease Expo: No Recent Hopitalizations: Yes (04/02-04/03/19 FOR CERVICAL SPINE SURGERY) Immunizations Up To Date Tetanus Booster (TDap): Unknown Date of Pneumonia Vaccine: Jul 21, 2018 Date of Influenza Vaccine: Jul 21, 2018 Seasonal Allergies Seasonal Allergies: No Past Medical History Surgeries: Yes (C-SPINE DISCECTOMY AND FUSION 04/02/19; ) Orthopedic, Tonsillectomy Respiratory: No Cardiac: Yes Hypertension Neurological: No Reproductive Disorders: No Sexually Transmitted Disease: No HIV/AIDS: No Genitourinary: No Gastrointestinal: Yes Gastroesophageal Reflux Musculoskeletal: Yes (CERVICAL SPINE STENOSIS--S/P SURGERY; CHRONIC NECK PAIN WITH RADICULOPATHY) Degenerate Disk Disease, Chronic Back Pain Endocrine: Yes Diabetes, Insulin dep HEENT: Yes (GLASSES) Hearing Impairment: Hard of Hearing, Bilateral Hearing Aide Cancer: No Psychosocial: No Integumentary: No Blood Disorders: No Adverse Reaction/Blood Tranf: No Physical Exam Vital Signs - First Documented 04/20/19 04/20/19 15:04 16:30 Temp 96.8 Pulse 92 Resp 20 B/P (MAP) 196/96 (129) Pulse Ox 95 O2 Delivery Room Air Capillary Refill : Less Than 3 Seconds Height: 5'10.00" Weight: 215lbs. 0oz. 97.097450wj; 31.2 BMI Method:Stated General Appearance: WD/WN, no apparent distress HEENT: PERRL/EOMI, other (NASAL CONGESTION AND POST NASAL DRAINAGE. APPEARS TO HAVE MUCOUS IN HIS POSTERIOR PHARYNX--UPPER AIRWAY CONGESTION) Respiratory: no respiratory distress, no accessory muscle use, decreased breath sounds (IN ALL LUNG HEREDIA); No rales, No rhonchi, No wheezing Cardiovascular: regular rate, rhythm, no murmur Gastrointestinal: soft Extremities: normal inspection, no pedal edema Neurologic/Psychiatric: ehs engineer II-XII nml as tested, no motor/sensory deficits, alert, normal mood/affect, oriented x 3 Skin: normal color, warm/dry Focused Exam Lactate Level 04/20/19 16:35: Lactic Acid Level 1.73 Lactic Acid Level Laboratory Tests Test 04/20/19 16:35 Lactic Acid Level 1.73 MMOL/L (0.50-2.00) Progress/Results/Core Measures Suspected Sepsis Recent Fever Within 48 Hours: No Infection Criteria Present: Suspected New Infection New/Unexplained Altered Menta: No Sepsis Screen: No Definite Risk SIRS Temperature:96.8 Pulse: 92 Respiratory Rate: 20 Laboratory Tests 04/20/19 16:35: White Blood Count 6.5 Blood Pressure 196 /96 Mean: 129 04/20/19 16:35: Lactic Acid Level 1.73 Laboratory Tests 04/20/19 16:35: Creatinine 0.76, INR Comment 1.0, Platelet Count 218, Total Bilirubin 0.4 Results/Orders Lab Results Laboratory Tests Test 04/20/19 16:35 Range/Units White Blood Count 6.5 4.3-11.0 10^3/uL Red Blood Count 4.79 4.35-5.85 10^6/uL Hemoglobin 13.8 13.3-17.7 G/DL Hematocrit 42 40-54 % Mean Corpuscular Volume 88 80-99 FL Mean Corpuscular Hemoglobin 29 25-34 PG Mean Corpuscular Hemoglobin Concent 33 32-36 G/DL Red Cell Distribution Width 15.4 H 10.0-14.5 % Platelet Count 218 130-400 10^3/uL Mean Platelet Volume 9.8 7.4-10.4 FL Neutrophils (%) (Auto) 53 42-75 % Lymphocytes (%) (Auto) 29 12-44 % Monocytes (%) (Auto) 9 0-12 % Eosinophils (%) (Auto) 9 0-10 % Basophils (%) (Auto) 1 0-10 % Neutrophils # (Auto) 3.4 1.8-7.8 X 10^3 Lymphocytes # (Auto) 1.8 1.0-4.0 X 10^3 Monocytes # (Auto) 0.6 0.0-1.0 X 10^3 Eosinophils # (Auto) 0.6 H 0.0-0.3 10^3/uL Basophils # (Auto) 0.1 0.0-0.1 10^3/uL Prothrombin Time 13.1 12.2-14.7 SEC INR Comment 1.0 0.8-1.4 Activated Partial Thromboplast Time 31 24-35 SEC Sodium Level 139 135-145 MMOL/L Potassium Level 4.5 3.6-5.0 MMOL/L Chloride Level 103 98-107 MMOL/L Carbon Dioxide Level 28 21-32 MMOL/L Anion Gap 8 5-14 MMOL/L Blood Urea Nitrogen 12 7-18 MG/DL Creatinine 0.76 0.60-1.30 MG/DL Estimat Glomerular Filtration Rate > 60 BUN/Creatinine Ratio 16 Glucose Level 131 H 70-105 MG/DL Lactic Acid Level 1.73 0.50-2.00 MMOL/L Calcium Level 10.2 H 8.5-10.1 MG/DL Corrected Calcium 9.8 8.5-10.1 MG/DL Magnesium Level 2.2 1.8-2.4 MG/DL Total Bilirubin 0.4 0.1-1.0 MG/DL Aspartate Amino Transf (AST/SGOT) 15 5-34 U/L Alanine Aminotransferase (ALT/SGPT) 17 0-55 U/L Alkaline Phosphatase 103 40-136 U/L Troponin I < 0.028 <0.028 NG/ML B-Type Natriuretic Peptide < 10.0 <100.0 PG/ML Total Protein 7.4 6.4-8.2 GM/DL Albumin 4.5 3.2-4.5 GM/DL My Orders Orders - CAMACHO BALLESTEROS DO Chest Pa/Lat (2 View) (04/20/19 15:34) Ed Iv/Invasive Line Start (04/20/19 15:57) BNP (04/20/19 15:57) Cbc With Automated Diff (04/20/19 15:57) Comprehensive Metabolic Panel (04/20/19 15:57) Lactic Acid Analyzer (04/20/19 15:57) Magnesium (04/20/19 15:57) Protime With Inr (04/20/19 15:57) Partial Thromboplastin Time (04/20/19 15:57) Troponin I (7/8/19 15:57) Blood Culture (04/20/19 15:57) Albuterol/Ipra Inhalation Soln (Duoneb I (04/20/19 16:00) Dexamethasone Injection (Decadron Inject (04/20/19 16:00) Rt Request For Service (04/20/19 15:57) Methylprednisolone Sod Succ (Solu-Medrol (04/20/19 15:57) Svn Small Volume Nebulizer (04/20/19 15:57) Ceftriaxone For Iv Use (Rocephin For I (04/20/19 17:30) Azithromycin Tablet (Zithromax Tablet) (04/20/19 17:30) Medications Given in ED Current Medications Medications Dose Ordered Sig/Ladarius Route Start Time Stop Time Status Last Admin Dose Admin Albuterol/ Ipratropium 3 ml ONCE ONCE INH 04/20/19 16:00 04/20/19 16:01 DC 04/20/19 16:28 3 ML Azithromycin 500 mg ONCE ONCE PO 04/20/19 17:30 04/20/19 17:31 DC 04/20/19 17:52 500 MG Ceftriaxone Sodium 1000 mg/ Sterile Water 10 ml @ 200 mls/hr ONCE ONCE IV 04/20/19 17:30 04/20/19 17:32 DC 04/20/19 17:54 200 MLS/HR Dexamethasone Sodium Phosphate 20 mg ONCE ONCE IH 04/20/19 16:00 04/20/19 16:01 DC 04/20/19 16:29 20 MG Vital Signs/I&O 04/20/19 04/20/19 04/20/19 15:04 16:30 18:04 Temp 96.8 98.6 Pulse 92 78 Resp 20 18 B/P (MAP) 196/96 (129) 148/87 (107) Pulse Ox 95 95 97 O2 Delivery Room Air Capillary Refill : Less Than 3 Seconds Blood Pressure Mean: 129 Progress Note : Progress Note UNEVENTFUL ER STAY NO COUGH OR DYSPNEA Diagnostic Imaging Comments CXR--RLL INFILTRATE, NEW FROM PREVIOUS--PER RADIOLOGIST REPORT AT 1522 Reviewed: Reviewed by Me Departure Impression Primary Impression: RLL pneumonia Disposition: 01 HOME, SELF-CARE Condition: Stable Departure-Patient Inst. Referrals: MARILIN CAPELLAN MD (PCP/Family) Primary Care Physician Patient Instructions: Pneumonia, Adult (DC) Add. Discharge Instructions: CONTINUE YOUR REGULAR MEDICATIONS PRESCRIBED LOTS OF CLEAR LIQUIDS USE YOUR ALBUTEROL NEBULIZER EVERY 4 HOURS USE PULMICORT ( NEW MEDICATION--INHALED STEROID ) IN NEBULIZER TWICE A DAY EVERY DAY FOLLOW UP WITH YOUR THIS WEEK FOR FURTHER CARE RETURN TO ER IF WORSE All discharge instructions reviewed with patient and/or family. Voiced understanding. Scripts Budesonide (Pulmicort) 1 Mg/2 Ml Ampul.neb 1 MG IH BID, #1 UNIT Prov: CAMACHO BALLESTEROS DO 04/20/19 Guaifenesin/Dextromethorphan (Mucinex Dm ER 1,200-60 mg Tab) 1 Each Tbmp.12hr 1 EACH PO BID for 10 Days, #20 EA Prov: CAMACHO BALLESTEROS DO 04/20/19 Methylprednisolone (Medrol) 4 Mg Tab.ds.pk 4 MG PO UD, #1 PKG Prov: CAMACHO BALLESTEROS DO 04/20/19 Azithromycin (Zithromax) 500 Mg Tablet 500 MG PO DAILY, #5 TAB FOR INFECTION Prov: CAMACHO BALLESTEROS DO 04/20/19 Cefdinir (Cefdinir) 300 Mg Capsule 300 MG PO BID for FOR INFECTION, #20 CAP Prov: CAMACHO BALLESTEROS DO 04/20/19 CAMACHO BALLESTEROS DO Apr 20, 2019 15:53
[2019-04-20] MEDS ORDERED: methylPREDNISolone 125 MG (Solu-MEDROL) VIAL IV STA (15:57)
[2019-04-20] MEDS ORDERED: RT-ALBUTEROL/IPRATROPIUM 3 ML (DUONEB) VIAL INH ONE (16:00)
[2019-04-20] MEDS ORDERED: DEXAMETHASONE 4 MG/ML SDV (DECADRON) IH ONE (16:00)
[2019-04-20 16:47] LABS: BASOPHILS # (AUTO) 0.1 10^3/uL (0.0-0.1); BASOPHILS % (AUTO) 1 % (0-10); EOSINOPHILS # (AUTO) 0.6 10^3/uL (0.0-0.3); EOSINOPHILS % (AUTO) 9 % (0-10); HEMATOCRIT 42 % (40-54); HEMOGLOBIN 13.8 G/DL (13.3-17.7); LYMPHOCYTES # (AUTO) 1.8 X 10^3 (1.0-4.0); LYMPHOCYTES % (AUTO) 29 % (12-44); MEAN CORPUSCULAR HEMOGLOBIN 29 PG (25-34); MEAN CORPUSCULAR HGB CONC 33 G/DL (32-36); MEAN CORPUSCULAR VOLUME 88 FL (80-99); MEAN PLATELET VOLUME 9.8 FL (7.4-10.4); MONOCYTES # (AUTO) 0.6 X 10^3 (0.0-1.0); MONOCYTES % (AUTO) 9 % (0-12); NEUTROPHILS # (AUTO) 3.4 X 10^3 (1.8-7.8); NEUTROPHILS % (AUTO) 53 % (42-75); PLATELET COUNT 218 10^3/uL (130-400); RED CELL DISTRIBUTION WIDTH 15.4 % (10.0-14.5); WHITE BLOOD COUNT 6.5 10^3/uL (4.3-11.0)
[2019-04-20 17:05] LABS: PROTHROMBIN TIME PATIENT 13.1 SEC (12.2-14.7)
[2019-04-20 17:12] LABS: ALANINE AMINOTRANSFERASE 17 U/L (0-55); ALBUMIN 4.5 GM/DL (3.2-4.5); ALKALINE PHOSPHATASE 103 U/L (40-136); BILIRUBIN,TOTAL 0.4 MG/DL (0.1-1.0); BUN/CREATININE RATIO 16; CALCIUM 10.2 MG/DL (8.5-10.1); CARBON DIOXIDE 28 MMOL/L (21-32); CHLORIDE 103 MMOL/L (98-107); CREATININE SERUM 0.76 MG/DL (0.60-1.30); GFR ESTIMATED > 60; GLUCOSE 131 MG/DL (70-105); MAGNESIUM 2.2 MG/DL (1.8-2.4); POTASSIUM 4.5 MMOL/L (3.6-5.0); SODIUM 139 MMOL/L (135-145); TOTAL PROTEIN 7.4 GM/DL (6.4-8.2)
[2019-04-20] MEDS ORDERED: AZITHROMYCIN 250 MG TAB (ZITHROMAX) PO ONE (17:30)
[2019-04-20] MEDS ORDERED: cefTRIAXone FOR IV USE 1,000 MG in WATER (STERILE) FOR INJECTION 10 ML IV ONE (17:30)
[2019-04-20] MEDS ORDERED: METH4TAB PO (17:36)
[2019-04-20] MEDS ORDERED: GUAI1TBM19 PO (17:36)
[2019-04-20] MEDS ORDERED: AZIT500T PO (17:36)
[2019-04-20] MEDS ORDERED: CEFD300C3 PO (17:36)
[2019-04-20] MEDS ORDERED: BUDE1AMP IH (17:36)
[2019-04-20 18:04] VITALS: BP 148/87
== END 2019-04-20 18:06 | disposition home or self-care (01) ==
LOC: EDUNIT# 14:45 → ER 14:46
DX: J18.1 Lobar pneumonia, unspecified organism (principal); I10 Essential (primary) hypertension; K21.9 Gastro-esophageal reflux disease without esophagitis; E11.9 Type 2 diabetes mellitus without complications; Z90.89 Acquired absence of other organs; Z88.5 Allergy status to narcotic agent; Z88.6 Allergy status to analgesic agent; Z79.51 Long term (current) use of inhaled steroids; Z87.891 Personal history of nicotine dependence; Z79.4 Long term (current) use of insulin; Z98.1 Arthrodesis status
CPT/HCPCS: 36415; 71046; 80053; 83605; 83735; 83880; 84484; 85025; 85610; 85730; 87040; 94640; 96374; 96375

== ENCOUNTER → 2019-05-14 | Outpatient (CLI) | payer MEDICARE ==
[~2019-05-14] MED LIST changes: +AZIT500T PO; +BUDE1AMP IH; +CEFD300C3 PO; +GUAI1TBM19 PO; +METH4TAB PO
[2019-05-14 15:28] LABS: BASOPHILS % (AUTO) 0 % (0-10); EOSINOPHILS # (AUTO) 0.1 10^3/uL (0.0-0.3); EOSINOPHILS % (AUTO) 3 % (0-10); HEMATOCRIT 42 % (40-54); HEMOGLOBIN 13.8 G/DL (13.3-17.7); LYMPHOCYTES # (AUTO) 1.1 X 10^3 (1.0-4.0); LYMPHOCYTES % (AUTO) 20 % (12-44); MEAN CORPUSCULAR HEMOGLOBIN 29 PG (25-34); MEAN CORPUSCULAR HGB CONC 33 G/DL (32-36); MEAN CORPUSCULAR VOLUME 88 FL (80-99); MONOCYTES # (AUTO) 0.4 X 10^3 (0.0-1.0); MONOCYTES % (AUTO) 7 % (0-12); NEUTROPHILS # (AUTO) 3.8 X 10^3 (1.8-7.8); NEUTROPHILS % (AUTO) 70 % (42-75); PLATELET COUNT 195 10^3/uL (130-400); RED CELL DISTRIBUTION WIDTH 15.8 % (10.0-14.5); WHITE BLOOD COUNT 5.4 10^3/uL (4.3-11.0)
[2019-05-14 15:50] LABS: ALANINE AMINOTRANSFERASE 11 U/L (0-55); ALBUMIN 4.2 GM/DL (3.2-4.5); ALKALINE PHOSPHATASE 84 U/L (40-136); BILIRUBIN,TOTAL 0.6 MG/DL (0.1-1.0); BUN/CREATININE RATIO 13; CALCIUM 9.9 MG/DL (8.5-10.1); CARBON DIOXIDE 23 MMOL/L (21-32); CHLORIDE 102 MMOL/L (98-107); CHOLESTEROL 150 MG/DL (< 200); CREATININE SERUM 0.82 MG/DL (0.60-1.30); GFR ESTIMATED > 60; GLUCOSE 222 MG/DL (70-105); HDL CHOLESTEROL 60 MG/DL (40-60); POTASSIUM 4.6 MMOL/L (3.6-5.0); SODIUM 136 MMOL/L (135-145); TOTAL PROTEIN 6.5 GM/DL (6.4-8.2); TRIGLYCERIDES 103 MG/DL (<150); VLDL CHOLESTEROL 21 MG/DL (5-40)
== END ==
LOC: LAB 15:10
PROVIDERS: ATTEND Nurse Practitioner Family
DX: E78.5 Hyperlipidemia, unspecified (principal); E11.9 Type 2 diabetes mellitus without complications
CPT/HCPCS: 36415; 80053; 80061; 83036; 84443; 85025

== ENCOUNTER → 2019-07-14 | Outpatient (CLI) | payer MEDICARE ==
--- NOTE | 2019-07-15 13:37 | Diagnostic Imaging Report ---
INDICATION: Non-toxic nodule of the thyroid. FINDINGS: 194 uCi of I-123 was given. There is good uptake noted throughout both lobes. No findings to indicate a hot or cold nodule. The 4 hour uptake is 7.1%. The 24-hour uptake is 19.2%. IMPRESSION: Normal thyroid scan with a normal 24-hour uptake. Dictated by: Dictated on workstation # [id number]
== END ==
LOC: CARD 11:40
PROVIDERS: ATTEND Nurse Practitioner Family
DX: E04.1 Nontoxic single thyroid nodule (principal)
CPT/HCPCS: 78014

== ENCOUNTER → 2019-12-04 | Outpatient (CLI) | payer MEDICARE ==
[2019-12-04 15:48] LABS: HEMOGLOBIN 14.3 G/DL (13.3-17.7); MEAN PLATELET VOLUME 10.1 FL (7.4-10.4); RED CELL DISTRIBUTION WIDTH 14.3 % (10.0-14.5)
[2019-12-04 16:11] LABS: ALANINE AMINOTRANSFERASE 14 U/L (0-55); ALBUMIN 4.2 GM/DL (3.2-4.5); ALKALINE PHOSPHATASE 82 U/L (40-136); BILIRUBIN,TOTAL 0.6 MG/DL (0.1-1.0); BUN/CREATININE RATIO 16; CALCIUM 9.6 MG/DL (8.5-10.1); CARBON DIOXIDE 23 MMOL/L (21-32); CHLORIDE 100 MMOL/L (98-107); CHOLESTEROL 166 MG/DL (< 200); CREATININE SERUM 0.75 MG/DL (0.60-1.30); GFR ESTIMATED > 60; GLUCOSE 193 MG/DL (70-105); HDL CHOLESTEROL 53 MG/DL (40-60); POTASSIUM 4.7 MMOL/L (3.6-5.0); SODIUM 134 MMOL/L (135-145); TOTAL PROTEIN 6.7 GM/DL (6.4-8.2); TRIGLYCERIDES 90 MG/DL (<150); VLDL CHOLESTEROL 18 MG/DL (5-40)
== END ==
LOC: LAB 15:15
PROVIDERS: ATTEND Nurse Practitioner Family
DX: E78.5 Hyperlipidemia, unspecified (principal); E11.9 Type 2 diabetes mellitus without complications; R53.83 Other fatigue
CPT/HCPCS: 36415; 80053; 80061; 83036; 84443; 85027

== ENCOUNTER 2021-06-02 01:04 | Emergency (ER) | payer MEDICARE ==
[~2021-06-02] VITALS: Ht 178 cm; Wt 98.0 kg
[~2021-06-02 01:04] MED LIST changes: -LISI10TA2 PO; +LISI10TA25 PO
[2021-06-02] MEDS ORDERED: methylPREDNISolone 125 MG (Solu-MEDROL) VIAL IV STA (01:21)
[2021-06-02 01:39] LABS: BASOPHILS # (AUTO) 0.1 10^3/uL (0.0-0.1); BASOPHILS % (AUTO) 1 % (0-10); EOSINOPHILS # (AUTO) 0.6 10^3/uL (0.0-0.3); EOSINOPHILS % (AUTO) 10 % (0-10); HEMATOCRIT 43 % (40-54); HEMOGLOBIN 14.5 g/dL (13.3-17.7); LYMPHOCYTES # (AUTO) 1.3 10^3/uL (1.0-4.0); LYMPHOCYTES % (AUTO) 21 % (12-44); MEAN CORPUSCULAR HEMOGLOBIN 32 pg (25-34); MEAN CORPUSCULAR HGB CONC 34 g/dL (32-36); MEAN CORPUSCULAR VOLUME 94 fL (80-99); MEAN PLATELET VOLUME 10.3 fL (9.0-12.2); MONOCYTES # (AUTO) 0.4 10^3/uL (0.0-1.0); MONOCYTES % (AUTO) 7 % (0-12); NEUTROPHILS # (AUTO) 3.8 10^3/uL (1.8-7.8); NEUTROPHILS % (AUTO) 60 % (42-75); PLATELET COUNT 166 10^3/uL (130-400); WHITE BLOOD COUNT 6.2 10^3/uL (4.3-11.0)
[2021-06-02 01:45] LABS: ALBUMIN 4.2 GM/DL (3.2-4.5); CHLORIDE 96 MMOL/L (98-107); INR 0.9 (0.8-1.4); POTASSIUM 4.2 MMOL/L (3.6-5.0); PROTHROMBIN TIME PATIENT 12.4 SEC (12.2-14.7); SODIUM 131 MMOL/L (135-145)
[2021-06-02 01:46] LABS: CALCIUM 9.6 MG/DL (8.5-10.1)
[2021-06-02 01:48] LABS: CARBON DIOXIDE 23 MMOL/L (21-32)
[2021-06-02 01:49] LABS: BILIRUBIN,TOTAL 0.4 MG/DL (0.1-1.0)
[2021-06-02 01:51] LABS: ALKALINE PHOSPHATASE 97 U/L (40-136); CREATININE SERUM 1.08 MG/DL (0.60-1.30); GFR ESTIMATED 68
[2021-06-02 01:52] LABS: BUN/CREATININE RATIO 15
[2021-06-02 01:54] LABS: ALANINE AMINOTRANSFERASE 13 U/L (0-55)
[2021-06-02 01:55] LABS: CREATINE KINASE 141 U/L (30-200); GLUCOSE 429 MG/DL (70-105)
[2021-06-02] MEDS ORDERED: NS IV 1000 ML 1,000 ML IV SCH (02:15)
[2021-06-02] MEDS ORDERED: inSUlin (REGULAR) HUMAN 1 UNIT/0.01 ML (CHARGE PER UNIT) IV ONE (02:15)
[2021-06-02] MEDS ORDERED: BUDE90AE2 IH (03:49)
[2021-06-02] MEDS ORDERED: METH4TAB PO (03:49)
[2021-06-02] MEDS ORDERED: DOXY100T2 PO (03:49)
--- NOTE | 2021-06-02 03:50 | ED Respiratory ---
General Chief Complaint: Respiratory Problems Stated Complaint: ASTHMA ATTACK Nursing Triage Note: C/O ASTHMA ATTACK EARLIER TONIGHT. REPORTS USING HOME INHALER/NEBULIZER TO RESOLVE SYMPTOMS. DENIES SX AT THIS TIME. Source: patient History of Present Illness Date Seen by Provider: Jun 02, 2021 Time Seen by Provider: 01:12 Initial Comments PT ARRIVES VIA POV FROM HOME STATES HE HAD AN "ASTHMA ATTACK" EARLIER TONIGHT, AROUND 2300 STATES HE WAS DX/TREATED FOR BRONCHITIS ABOUT A MONTH AGO AND THOSE SYMPTOMS GOT BETTER PT STATES HE WAS DX WITH "ASTHMA" ABOUT A YEAR AGO, AND HAS BEEN PRESCRIBED A "NEB AND A PUFFER" STATES HE CARRIED A CASE OF WATER INTO THE HOUSE TONIGHT, AND GOT SHORT OF BREATH STATES "I WENT INTO ONE TONIGHT AND I USED THE PUFFER AND THE NEB AND I CAME OUT OF IT, BUT IT SCARED ME" SYMPTOMS COMPLETELY RESOLVED NO CHEST PAIN NO FEVER NO COUGH NO URI SYMPTOMS NO LOSS OF TASTE/SMELL NO SORE THROAT NO SWELLING IN LEGS/FEET OR PAIN IN CALVES NO PALPITATIONS NO DIZZINESS OR SYNCOPE NO GI SYMPTOMS HAS BEEN FINE ALL DAY STATES HE HAS AN APPOINTMENT THIS MORNING AT [facility] IN [place] FOR THIS PROBLEM. PT HAS HAD BOTH MODERNA COVID-19 VACCINES ABOUT 6 MONTHS AGO PCP: SEES [employer] ARCHITECT AT [facility] IN [place] Allergies and Home Medications Allergies Coded Allergies: naproxen sodium (Verified Allergy, Severe, ANAPHYLAXIS, 02/25/19) codeine (Verified Allergy, Mild, 02/25/19) TOOK FOR EXTENDED PERIOD AND QUIT WORKING Home Medications Albuterol Sulfate 2.5 Mg/3 Ml Vial.neb, 2.5 MG INH Q4H PRN for SHORTNESS OF BREATH Prescribed by: HANSA HUSTON on 03/23/19 1600 Amlodipine Besylate 5 Mg Tablet, 5 MG PO DAILY Prescribed by: HANSA HUSTON on 03/23/19 1600 Azithromycin 500 Mg Tablet, 500 MG PO DAILY FOR INFECTION Prescribed by: CAMACHO BALLESTEROS on 04/20/19 173 Budesonide 1 Mg/2 Ml Ampul.neb, 1 MG IH BID Prescribed by: CAMACHO BALLESTEROS on 04/20/19 173 Budesonide 90 Mcg Aer.pow.ba, 90 MCG IH BID Prescribed by: CAMACHO BALLESTEROS on 06/02/21 0349 Cefdinir 300 Mg Capsule, 300 MG PO BID Prescribed by: CAMACHO BALLESTEROS on 04/20/19 173 Cyclobenzaprine HCl 10 Mg Tablet, 10 MG PO DAILY, (Reported) Doxycycline Hyclate 100 Mg Tablet, 100 MG PO BID Prescribed by: CAMACHO BALLESTEROS on 06/02/21 034 Esomeprazole Magnesium 40 Mg Cap, 40 MG PO DAILY, (Reported) Fluticasone Propionate 9.9 Ml [place].susp, 2 SPRAY NSEACH BID 2 SPRAYS PER NOSTRIL DAILY X 2 DAYS THEN 1 SPRAY DAILY Prescribed by: HANSA HUSTON on 03/23/19 1600 Guaifenesin/Dextromethorphan 1 Each Tbmp.12hr, 1 EACH PO BID Prescribed by: CAMACHO BALLESTEROS on 04/20/191735 Insulin Determir 1,000 Units/10 Ml Soln, 40 UNITS SQ HS, (Reported) Insulin Lispro 100 Unit/1 Ml Insuln.pen, 15 UNIT SQ AC, (Reported) Lisinopril 10 Mg Tablet, 10 MG PO DAILY, (Reported) Metformin HCl 500 Mg Tablet, 500 MG PO BID, (Reported) Methylprednisolone 4 Mg Tab.ds.pk, 4 MG PO UD Prescribed by: CAMACHO BALLESTEROS on 04/20/191735 Methylprednisolone 4 Mg Tab.ds.pk, 4 MG PO UD PER DOSE PACK INSTRUCTIONS Prescribed by: CAMACHO BALLESTEROS on 06/02/21348 Oxycodone HCl/Acetaminophen 1 Each Tablet, 1-2 TAB PO Q4H PRN for PAIN-MODERATE TO SEVERE Prescribed by: HOMER ESPINO on 03/03/19 1617 Zolpidem Tartrate 10 Mg Tablet, 10 MG PO HS, (Reported) Patient Home Medication List Home Medication List Reviewed: Yes Review of Systems Review of Systems Constitutional: no symptoms reported EENTM: no symptoms reported Respiratory: see HPI, short of breath; No wheezing Cardiovascular: no symptoms reported; No chest pain Gastrointestinal: no symptoms reported Genitourinary: no symptoms reported Musculoskeletal: no symptoms reported Skin: no symptoms reported Psychiatric/Neurological: Anxiety Hematologic/Lymphatic: No Symptoms Reported Immunological/Allergic: no symptoms reported Past Gnhigot-Crtevz-Ufvsdf Hx Patient Social History Tobacco Use?: Yes Smoking Status: Former Smoker (SMOKED 1 PPD, QUIT 30 YEARS AGO; STILL CHEWS TOBACCO) Smokeless Tobacco Frequency: Current Everyday User Use of E-Cig and/or Vaping dev: No Substance use?: No Alcohol Use?: No Pt feels they are or have been: No Immunizations Up To Date Tetanus Booster (TDap): Unknown First/Initial COVID19 Vaccinat: 12/04 Second COVID19 Vaccination [place]: 01/01 Seasonal Allergies Seasonal Allergies: No Past Medical History Surgery/Hospitalization HX: CERVICAL SPINE SURGERY--DISCECTOMY AND FUSION 04/02/19 BACK SURGERY X 2 Surgeries: Yes (C-SPINE DISCECTOMY AND FUSION 04/02/19; ) Orthopedic, Tonsillectomy Respiratory: Yes Asthma, Pneumonia, Chronic Bronchitis Cardiac: Yes Hypertension Neurological: No Reproductive Disorders: No Sexually Transmitted Disease: No HIV/AIDS: No Genitourinary: No Gastrointestinal: Yes Gastroesophageal Reflux Musculoskeletal: Yes (CERVICAL SPINE STENOSIS--S/P SURGERY; CHRONIC NECK PAIN WITH RADICULOPATHY) Degenerate Disk Disease, Chronic Back Pain Endocrine: Yes Diabetes, Insulin dep HEENT: Yes (GLASSES) Hearing Impairment: Hard of Hearing, Bilateral Hearing Aide Cancer: No Psychosocial: No Integumentary: No Blood Disorders: No Adverse Reaction/Blood Tranf: No Physical Exam Vital Signs - First Documented 06/02/21 01:11 Temp 36.1 Pulse 82 Resp 18 B/P (MAP) 200/101 (134) Pulse Ox 95 O2 Delivery Room Air Capillary Refill : Less Than 3 Seconds Height: 5'10.00" Weight: 215lbs. 0oz. 97.584270zm; 30.00 BMI Method:Stated General Appearance: WD/WN, no apparent distress, other (TALKS NON-STOP AT LENGTH IN FULL SENTENCES. DOES NOT APPEAR ILL OR TO BE IN ANY DISCOMFORT OR DISTRESS. ) Neck: normal inspection Respiratory: normal breath sounds, no respiratory distress, no accessory muscle use Cardiovascular: normal peripheral pulses, regular rate, rhythm, no edema, no JV D, no murmur Gastrointestinal: soft Extremities: normal inspection, no pedal edema, no calf tenderness, normal capillary refill Neurologic/Psychiatric: perfusionist II-XII nml as tested, no motor/sensory deficits, alert, normal mood/affect, oriented x 3 Skin: normal color, warm/dry Progress/Results/Core Measures Suspected Sepsis SIRS Temperature: Pulse: 82 Respiratory Rate: 18 Laboratory Tests 06/02/21 01:20: White Blood Count 6.2 Blood Pressure 200 /101 Mean: 134 Laboratory Tests 06/02/21 01:20: Creatinine 1.08, INR Comment 0.9, Platelet Count 166, Total Bilirubin 0.4 Results/Orders Lab Results Laboratory Tests Test 06/02/21 01:16 06/02/21 01:20 06/02/21 03:20 Range/Units SARS-CoV-2 RNA (RT-PCR) Not Detected Not Detecte White Blood Count 6.2 4.3-11.0 10^3/uL Red Blood Count 4.61 4.30-5.52 10^6/uL Hemoglobin 14.5 13.3-17.7 g/dL Hematocrit 43 40-54 % Mean Corpuscular Volume 94 80-99 fL Mean Corpuscular Hemoglobin 32 25-34 pg Mean Corpuscular Hemoglobin Concent 34 32-36 g/dL Red Cell Distribution Width 13.1 10.0-14.5 % Platelet Count 166 130-400 10^3/uL Mean Platelet Volume 10.3 9.0-12.2 fL Immature Granulocyte % (Auto) 1 % Neutrophils (%) (Auto) 60 42-75 % Lymphocytes (%) (Auto) 21 12-44 % Monocytes (%) (Auto) 7 0-12 % Eosinophils (%) (Auto) 10 0-10 % Basophils (%) (Auto) 1 0-10 % Neutrophils # (Auto) 3.8 1.8-7.8 10^3/uL Lymphocytes # (Auto) 1.3 1.0-4.0 10^3/uL Monocytes # (Auto) 0.4 0.0-1.0 10^3/uL Eosinophils # (Auto) 0.6 H 0.0-0.3 10^3/uL Basophils # (Auto) 0.1 0.0-0.1 10^3/uL Immature Granulocyte # (Auto) 0.0 0.0-0.1 10^3/uL Prothrombin Time 12.4 12.2-14.7 SEC INR Comment 0.9 0.8-1.4 Activated Partial Thromboplast Time 31 24-35 SEC Sodium Level 131 L 135-145 MMOL/L Potassium Level 4.2 3.6-5.0 MMOL/L Chloride Level 96 L 98-107 MMOL/L Carbon Dioxide Level 23 21-32 MMOL/L Anion Gap 12 5-14 MMOL/L Blood Urea Nitrogen 16 7-18 MG/DL Creatinine 1.08 0.60-1.30 MG/DL Estimat Glomerular Filtration Rate 68 BUN/Creatinine Ratio 15 Glucose Level 429 *H 70-105 MG/DL Calcium Level 9.6 8.5-10.1 MG/DL Corrected Calcium 9.4 8.5-10.1 MG/DL Magnesium Level 2.0 1.6-2.4 MG/DL Total Bilirubin 0.4 0.1-1.0 MG/DL Aspartate Amino Transf (AST/SGOT) 12 5-34 U/L Alanine Aminotransferase (ALT/SGPT) 13 0-55 U/L Alkaline Phosphatase 97 40-136 U/L Total Creatine Kinase 141 30-200 U/L Creatine Kinase MB 4.0 <6.6 NG/ML Myoglobin 66.2 10.0-92.0 NG/ML Troponin I < 0.028 <0.028 NG/ML B-Type Natriuretic Peptide 13.3 <100.0 PG/ML Total Protein 7.0 6.4-8.2 GM/DL Albumin 4.2 3.2-4.5 GM/DL Glucometer 171 H 70-110 MG/DL My Orders Orders - CAMACHO BALLESTEROS DO Ed Iv/Invasive Line Start (06/02/21 01:21) Ekg Tracing (06/02/21:) Monitor-Rhythm Ecg Trace Only (06/02/21:21) BNP (06/02/21:21) Cbc With Automated Diff (06/02/21:) Comprehensive Metabolic Panel (06/02/21:21) Creatine Kinase (06/02/21:21) Creatine Kinase Mb (06/02/21:21) Magnesium (06/02/21:21) Protime With Inr (06/02/21:21) Partial Thromboplastin Time (06/02/21:21) Myoglobin Serum (06/02/21:21) Troponin I (06/02/21:21) Chest 1 View, Ap/Pa Only (06/02/21 01:21) Methylprednisolone Sod Succ (Solu-Medrol (06/02/21 01:21) Covid 19 Inhouse Test (06/02/21:21) Insulin (Regular) Human (Novolin R (Per (06/02/21 02:15) Ed Iv/Invasive Line Start (06/02/21 02:06) Ns Iv 1000 Ml (Sodium Chloride 0.9%) (06/02/21 02:15) Ct Angio Chest W (06/02/21 02:40) Accucheck Stat ONCE (06/02/21 03:19) Iohexol Injection (Omnipaque 350 Mg/Ml 1 (06/02/21 05:00) Received Contrast (Hold Metformin- Contr (06/02/21 05:00) Ns (Ivpb) (Sodium Chloride 0.9% Ivpb Bag (06/02/21 05:00) Medications Given in ED Vital Signs/I&O 06/02/21 06/02/21 01:11 03:57 Temp 36.1 36.3 Pulse 82 70 Resp 18 19 B/P (MAP) 200/101 (134) 160/89 (134) Pulse Ox 95 95 O2 Delivery Room Air Room Air Capillary Refill : Less Than 3 Seconds Blood Pressure Mean: 134 Point of Care Testing Finger Stick Blood Glucose: 171 Blood Glucose Action Taken: doc notified Progress Note : Progress Note NO SYMPTOMS OF ANY KIND FOR ENTIRE ER STAY NO COUGH NO DYSPNEA NO HYPOXIA NO FEVER NO ABNORMAL VITALS ECG Initial ECG Impression Date: Jun 02, 2021 Initial ECG Impression Time: 01:27 Initial ECG Rate: 71 Initial ECG Rhythm: Normal Sinus Diagnostic Imaging Comments CXR--NO ACUTE PROCESS, PENDING RADIOLOGIST REVIEW CT CHEST ANGIOGRAM--NO P.E. OR ACUTE PROCESS, IN CHEST. PARTIALLY VIEWED LEFT HYDRONEPHROSIS--PER [facility] VIA FAX AT [phone] Reviewed: Reviewed by Me Departure Impression Primary Impression: Asthmatic bronchitis with exacerbation Additional Impression: Diabetes mellitus, insulin dependent (IDDM), uncontrolled Disposition: 01 HOME, SELF-CARE Condition: Improved Departure-Patient Inst. Decision time for Depature: 03:45 Referrals: MARILIN CAPELLAN MD (PCP/Family) Primary Care Physician Patient Instructions: Acute Bronchitis, Adult (DC), Asthma, Adult (DC), Diabetes and Infections, Rescue vs Controller Inhalers Add. Discharge Instructions: USE YOUR ALBUTEROL NEBULIZER EVERY 4 HOURS NEEDED TYLENOL AND MOTRIN NEEDED FOR PAIN OVER THE COUNTER MUCINEX DM FOR COUGH AND CONGESTION FOLLOW UP WITH YOUR DR ON SATURDAY FOR FURTHER CARE, RETURN TO ER IF WORSE All discharge instructions reviewed with patient and/or family. Voiced understanding. Scripts Budesonide (Pulmicort Flexhaler) 90 Mcg Aer.pow.ba 90 MCG IH BID, #1 EA Prov: CAMACHO BALLESTEROS DO 06/02/21 Methylprednisolone (Medrol) 4 Mg Tab.ds.pk 4 MG PO UD for 6 Days, #21 PKG PER DOSE PACK INSTRUCTIONS Prov: CAMACHO BALLESTEROS DO 06/02/21 Doxycycline Hyclate (Doxycycline Hyclate) 100 Mg Tablet 100 MG PO BID, #20 TAB 0 Refills Prov: CAMACHO BALLESTEROS DO 06/02/21 CAMACHO BALLESTEROS DO Jun 02, 2021 03:50
[2021-06-02 03:57] VITALS: BP 160/89
[2021-06-02] MEDS ORDERED: NS 100 ML (IVPB) BAG IV ONE (05:00)
[2021-06-02] MEDS ORDERED: HOLD METFORMIN - RECEIVED CONTRAST 20 ML VIAL IV SCH (05:00)
[2021-06-02] MEDS ORDERED: IOHEXOL 350 MG/ML 100 ML (OMNIPAQUE 350) VIAL IV ONE (05:00)
--- NOTE | 2021-06-02 06:03 | Diagnostic Imaging Report ---
EXAMINATION: Chest 1 view HISTORY: DYSPNEA COMPARISON: 10/15/2014, CT chest 06/02/2021 FINDINGS: Heart size and pulmonary vasculature are normal. Mild atelectasis within the lung bases. No pleural effusion or pneumothorax. Subcentimeter calcified right lower lung nodules. The osseous structures are intact. IMPRESSION: 1. No acute radiographic abnormality in the chest. Dictated by: Dictated on workstation # [id number]
--- NOTE | 2021-06-02 06:14 | Diagnostic Imaging Report ---
EXAMINATION: CT angiography of the chest. TECHNIQUE: Contrast enhanced thin section helical images were obtained through the chest with intravenous contrast timed for the optimal opacification of the arterial structures per CTA protocol. Post-processing, reconstructions and interpretation of angiographic images of the vessels was performed. 3D MIP reconstructions were performed and reviewed. All CT scans use one or more of the following dose optimizing techniques: automated exposure control, MA and/or KvP adjustment based on a patient size and exam type, or iterative reconstruction. HISTORY: Dyspnea COMPARISON: 12/11/2018 FINDINGS: Vascular: No filling defects within the pulmonary arteries. Thoracic aorta is normal in caliber. Calcification of the aorta and coronary vessels. Thyroid: The thyroid is normal. Mediastinum: Heart size is normal without significant pericardial effusion. No suspicious lymphadenopathy. Lungs and airways: The lungs are clear without consolidation, pleural effusion, or pneumothorax. There is mild scattered atelectasis. Calcified granulomas present within the right lower lobe. The airways are normal. Upper abdomen: Mild left hydronephrosis. Musculoskeletal: Surgical degenerative changes of the spine. There is fusion of the T5 and T6 vertebral bodies with compression deformity, chronic appearing. IMPRESSION: 1. No findings of pulmonary embolus or other acute abnormality in the chest. 2. Partially visualized left hydronephrosis. 3. Agree with preliminary interpretation. Dictated by: Dictated on workstation # [id number]
== END 2021-06-02 03:57 | disposition home or self-care (01) ==
LOC: EDUNIT# 01:04 → ER 01:08
DX: J45.901 Unspecified asthma with (acute) exacerbation (principal); E11.65 Type 2 diabetes mellitus with hyperglycemia; I10 Essential (primary) hypertension; K21.9 Gastro-esophageal reflux disease without esophagitis; G89.29 Other chronic pain; M54.9 Dorsalgia, unspecified; Z87.891 Personal history of nicotine dependence; Z20.822 Contact with and (suspected) exposure to COVID-19; Z79.4 Long term (current) use of insulin; Z79.899 Other long term (current) drug therapy; Z79.891 Long term (current) use of opiate analgesic
CPT/HCPCS: 36415; 71045; 71275; 80053; 82550; 82553; 82947; 83735; 83874; 83880; 84484; 85025; 85610; 85730; 87636; 93005; 93041